=== PATIENT | female | born 1995 | race Caucasian/White ===

== ENCOUNTER 2016-08-01 14:07 | Emergency (ER) | payer BC ==
[~2016-08-01] VITALS: Ht 162.6 cm; Wt 90.7 kg
[2016-08-01 14:16] VITALS: TEMP 37; Ht 162.6 cm; Wt 90.7 kg
[2016-08-01] MEDS ORDERED: BCPILLS PO (15:08)
[2016-08-01] MEDS ORDERED: SODIUM CHLORIDE 0.9% 1000ML 1,000 ML IV ONE (15:45)
--- NOTE | 2016-08-01 16:16 | DIAGNOSTIC IMAGING REPORT ---
LEFT ELBOW 3 VIEWS HISTORY: Left elbow area soft tissue swelling COMPARISON: None. FINDINGS: There is no fracture or dislocation. Soft tissues are unremarkable. No significant elbow effusion. No radiopaque foreign bodies. IMPRESSION: No significant abnormality within the left elbow by conventional radiographic technique. Electronically signed by: Jamar Mojica M.D. 08/01/2016 4:15 PM Dictated Date/Time: 08/01/2016 4:14 PM
[2016-08-01 16:50] LABS: BASO % 0.2 %; BASO ABS # 0.02 K/uL (0-0.2); COMPLETE YES; EOS % 2.2 %; HEMATOCRIT 42.4 % (37-47); IG% 0.3 %; LYMPH ABS # 1.96 K/uL (1.2-3.4); MEAN CELL VOLUME 81.9 fL (80-100); MEAN CORPUSCULAR HGB CONC 35.4 g/dl (32-36); MEAN PLATELET VOLUME 10.1 fL (7.4-10.4); MONO % 6.2 %; NEUT % 73.1 %; PLATELET COUNT 262 K/uL (130-400); RED BLOOD COUNT 5.18 M/uL (4.2-5.4); WHITE BLOOD COUNT 10.86 K/uL (4.8-10.8)
[2016-08-01 17:08] LABS: CALCIUM 10.1 mg/dl (8.5-10.1); CREATININE 0.83 mg/dl (0.60-1.20); POTASSIUM 3.6 mmol/L (3.5-5.1)
[2016-08-01 17:11] LABS: ALB/GLOB RATIO 0.9 (0.9-2)
[2016-08-01 17:32] LABS: ANTI-STREP O SCR: 5YRS OR > POS IU/ml (<200 IU)
[2016-08-01 17:47] LABS: ANTI-STREP O TITRE: 5YR OR > 200 IU/ml (<200 IU)
--- NOTE | 2016-08-01 17:50 | DIAGNOSTIC IMAGING REPORT ---
BILATERAL LOWER EXTREMITY VENOUS DOPPLER CLINICAL HISTORY: Tachycardia. Calf pain b/l. On control COMPARISON STUDY: No previous studies for comparison. TECHNIQUE: Sonography of the deep venous system of the bilateral lower extremities was performed. Compression and augmentation were evaluated. FINDINGS: The bilateral common femoral, superficial femoral and popliteal veins were compressible. Augmentation was normal. Flow was shown within the deep calf vessels. IMPRESSION: No evidence of deep venous thrombus within the bilateral lower extremities. Electronically signed by: Marco A Lechuga M.D. 08/01/2016 5:48 PM Dictated Date/Time: 08/01/2016 5:48 PM
--- NOTE | 2016-08-01 18:00 | DIAGNOSTIC IMAGING REPORT ---
LEFT ELBOW ULTRASOUND CLINICAL HISTORY: Lump. Cellulitis. COMPARISON STUDY: No previous studies for comparison. FINDINGS: Sonography of the left elbow at site of painful lump revealed no mass, fluid collection or other sonographic abnormality. IMPRESSION: No fluid collection or mass identified within the left elbow at site of painful lump. Electronically signed by: Marco A Lechuga M.D. 08/01/2016 5:58 PM Dictated Date/Time: 08/01/2016 5:58 PM
[2016-08-01 18:01] LABS: LYME DISEASE AB IGG NEG (NEG)
[2016-08-01 18:02] LABS: LYME DISEASE AB IGM NEG (NEG)
[2016-08-01] MEDS ORDERED: CEFTRIAXONE SOD INJ 1 GM ADDVIAL IV STA (18:04)
[2016-08-01] MEDS ORDERED: OXYMETAZOLINE HCL 0.05% NA SPR 15 ML BTL ONE (18:15)
[2016-08-01] MEDS ORDERED: CEFD1CAP14 PO (18:40)
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
[2016-08-01 20:13] VITALS: BP 125/91; PULSE 107; O2SAT 100
[2016-12-25] MEDS ORDERED: ATR25 PO (10:04)
[2016-12-25] MEDS ORDERED: LXP10 PO (10:04)
[2016-12-25] MEDS ORDERED: RSP1 PO (10:04)
== END 2016-08-01 20:14 | disposition home or self-care (01) ==
LOC: C.EDB 14:10
DX: L03.114 Cellulitis of left upper limb (principal); R00.0 Tachycardia, unspecified; M79.661 Pain in right lower leg; M79.662 Pain in left lower leg; Z79.3 Long term (current) use of hormonal contraceptives

== ENCOUNTER 2016-09-26 20:05 | Emergency (ER) | payer BC ==
[~2016-09-26] VITALS: Ht 162.6 cm; Wt 90.4 kg
[~2016-09-26 20:05] MED LIST: BCPILLS PO
[2016-09-26 20:09] VITALS: TEMP 36.4; Ht 162.6 cm; Wt 90.4 kg
[2016-09-26] MEDS ORDERED: ACETAMINOPHEN 500 MG TAB PO STA (21:04)
[2016-09-26] MEDS ORDERED: SODIUM CHLORIDE 0.9% 1000ML 1,000 ML IV STA (21:04)
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
[2016-09-26 21:37] LABS: BASO % 0.1 %; BASO ABS # 0.01 K/uL (0-0.2); COMPLETE YES; EOS % 1.5 %; HEMATOCRIT 38.5 % (37-47); IG% 0.3 %; LYMPH % 34.3 %; LYMPH ABS # 2.35 K/uL (1.2-3.4); MEAN CELL VOLUME 82.3 fL (80-100); MEAN CORPUSCULAR HEMOGLOBIN 28.4 pg (25-34); MEAN CORPUSCULAR HGB CONC 34.5 g/dl (32-36); MEAN PLATELET VOLUME 10.4 fL (7.4-10.4); MONO % 6.3 %; NEUT % 57.5 %; PLATELET COUNT 252 K/uL (130-400); RED BLOOD COUNT 4.68 M/uL (4.2-5.4); WHITE BLOOD COUNT 6.86 K/uL (4.8-10.8)
[2016-09-26 22:02] LABS: ALT/SGPT 20 U/L (12-78); BLOOD UREA NITROGEN 11 mg/dl (7-18); BUN/CREATININE RATIO 11.5 (10-20); CALCIUM 9.3 mg/dl (8.5-10.1); CARBON DIOXIDE 23 mmol/L (21-32); CHLORIDE 106 mmol/L (98-107); CREATININE 0.97 mg/dl (0.60-1.20); GLUCOSE 81 mg/dl (70-99); POTASSIUM 3.1 mmol/L (3.5-5.1); SODIUM 141 mmol/L (136-145)
[2016-09-26 22:03] LABS: PREG INTERNAL NEGATIVE QC NEG CLEAR BACKGROUND; PREG INTERNAL POSITIVE QC POS CONTROL LINE
[2016-09-26 22:05] LABS: ALKALINE PHOSPHATASE 70 U/L (45-117); AST/SGOT 14 U/L (15-37)
--- NOTE | 2016-09-26 22:09 | DIAGNOSTIC IMAGING REPORT ---
CHEST ONE VIEW PORTABLE CLINICAL HISTORY: Chest pain. COMPARISON STUDY: Chest radiograph May 25, 2013. FINDINGS: Lung volumes are normal. Lungs are clear. There is no pneumothorax or pleural effusion. Cardiac size is normal. Mediastinal contours are normal. There is no evidence of pulmonary edema. IMPRESSION: No acute cardiopulmonary findings. Electronically signed by: Marco A Lechuga M.D. 09/26/2016 10:08 PM Dictated Date/Time: 09/26/2016 10:07 PM
[2016-09-26] MEDS ORDERED: POTASSIUM CHLORIDE 10 MEQ TABCR PO STA (22:11)
[2016-09-26] MEDS ORDERED: HYDR25CA PO (22:13)
[2016-09-26] MEDS ORDERED: AMPH20TA2 PO (22:13)
[2016-09-26] MEDS ORDERED: IBUP-1428 PO (22:13)
[2016-09-26] MEDS ORDERED: IBUP-1050 PO (22:13)
[2016-09-26 22:39] VITALS: BP 124/79; PULSE 86; O2SAT 100
[2016-12-25] MEDS ORDERED: LXP10 PO (10:04)
[2016-12-25] MEDS ORDERED: ATR25 PO (10:04)
[2016-12-25] MEDS ORDERED: RSP1 PO (10:04)
== END 2016-09-26 22:40 | disposition home or self-care (01) ==
LOC: C.EDB 20:06 → C.EDA 22:40
DX: R07.2 Precordial pain (principal); E87.6 Hypokalemia; R00.2 Palpitations; F90.0 Attention-deficit hyperactivity disorder, predominantly inattentive type

== ENCOUNTER 2016-10-21 03:28 | Emergency (ER) | payer BC ==
[~2016-10-21] VITALS: Ht 162.6 cm; Wt 86.4 kg
[~2016-10-21 03:28] MED LIST changes: +AMPH20TA2 PO; +HYDR25CA PO; +IBUP-1050 PO; +IBUP-1428 PO
[2016-10-21 03:37] VITALS: TEMP 36.7; Ht 162.6 cm; Wt 86.4 kg
[2016-10-21] MEDS ORDERED: KETOROLAC TROMETHAMINE 30 MG/ML VIAL IV STA (03:52)
--- NOTE | 2016-10-21 04:03 | EMERGENCY ROOM VISIT NOTE ---
History Report prepared by Brandi: Sunday Lawton Under the Supervision of: Dr. Maryellen Haley D.O. First contact with patient: 03:33 Chief Complaint: CARDIAC ASSESSMENT Stated Complaint: CHEST PAIN/SHORT OF BREATH History of Present Illness The patient is a 21 year old female who presents to the Emergency Room with complaints of persistent left-sided chest pain that started just prior to arrival. The patient noticed the pain after putting laundry in the washing machine. The pain is described as a "warm" sensation. She did not have the pain when she was carrying the laundry to the washing machine, and she has never had pain like this before. She was in the ED with chest pain last month, which was sharp in nature and accompanied by bilateral arm numbness. The patient also describes some shortness of breath. She became lightheaded and weak after the onset of her pain which caused her to drop to her knees. She denies abdominal pain. She had upper back / left shoulder pain that started 1-2 hours ago, prior to the onset of her other symptoms. She denies any recent strenuous activities. The patient recently wore a halter monitor for palpitations, which she has yet to return. The patient was up at this hour because she took her Adderall later than usual (2100), which she does not normally do. She has not been taking more than her prescribed dose. She drinks coffee and last had some at 1600 last night. She is a [employer] student and has class in the afternoon today. The patient is on control but does not smoke. She denies drug or alcohol use. She also denies increased stress lately. The patient has a paternal history of hypertension. Source of History: patient Onset: prior to arrival Position: chest Quality: other ("warm") Timing: other (persistent) Associated Symptoms: + SOB, + back pain (back / left shoulder), + weakness, No abdominal pain Review of Systems See HPI for pertinent positives & negatives. A total of 10 systems reviewed and were otherwise negative. Past Medical & Surgical Medical Problems: (1) ADHD (attention deficit hyperactivity disorder) Family History Hypertension Social History Smoking Status: Never Smoker Alcohol Use: none Drug Use: none Marital Status: single Housing Status: lives with roommate Occupation Status: [employer] student Current/Historical Medications Scheduled Amphetamine-Dextroamphetamine 20MG (Adderall 20MG), 20 MG PO BID Control Pills ( Control Pills), 1 TAB PO DAILY Scheduled PRN Hydroxyzine Pamoate (Vistaril), 25 MG PO BID PRN for prn Allergies Coded Allergies: Amoxicillin (Unverified Allergy, Unknown, numbness/hives, 10/21/16) Physical Exam Vital Signs Date Time Temp Pulse Resp B/P Pulse Ox O2 Delivery O2 Flow Rate FiO2 10/21/16 05:39 91 16 128/81 100 10/21/16 03:37 36.7 97 18 134/92 100 Room Air 10/21/16 03:37 100 Room Air 10/21/16 03:35 102 Physical Exam HEENT: Head - normocephalic and atraumatic Pupils are equal, round, and reactive to light. Extraocular eye muscles are intact, and sclera are anicteric. Nose - moist nasal mucosa without discharge. Mouth - moist buccal mucosa. Oropharynx is nonerythematous and there is no tonsillar exudate or edema noted. Neck: Supple; no JVD, nuchal rigidity, cervical lymphadenopathy. Heart: Regular rate and rhythm. There is a normal S1 and S2 with no murmurs, clicks, or gallops appreciated. Lungs: Clear to auscultation bilaterally with no wheezes, rales, or rhonchi. Back: Muscle spasm to the medial aspect of the left scapula. Tender with palpation. Abdomen: Soft, completely nontender, nondistended, with good bowel sounds. There are no palpable pulsatile masses or hepatosplenomegaly. There is no guarding, rigidity, or rebound noted. Extremities: No evidence of cyanosis, clubbing, or edema. There are easily palpable peripheral pulses. Skin: warm and dry with good turgor and no rashes. Medical Decision & Procedures ER Provider Diagnostic Interpretation: X-ray results as stated below per interpretation by me. CHEST ONE VIEW PORTABLE: No cardiomegaly, no pulmonary infiltrates. Unremarkable portable chest X-ray. Laboratory Results 10/21/16 04:19 Red Blood Count 4.55, Mean Corpuscular Volume 79.8, Mean Corpuscular Hemoglobin 28.4, Mean Corpuscular Hemoglobin Concent 35.5, Mean Platelet Volume 10.3, Neutrophils (%) (Auto) 62.0, Lymphocytes (%) (Auto) 29.4, Monocytes (%) (Auto) 6.3, Eosinophils (%) (Auto) 1.9, Basophils (%) (Auto) 0.2, Neutrophils # (Auto) 3.96, Lymphocytes # (Auto) 1.87, Monocytes # (Auto) 0.40, Eosinophils # (Auto) 0.12, Basophils # (Auto) 0.01 10/21/16 04:19 Test 10/21/16 04:19 White Blood Count 6.37 K/uL (4.8-10.8) Red Blood Count 4.55 M/uL (4.2-5.4) Hemoglobin 12.9 g/dL (12.0-16.0) Hematocrit 36.3 % (37-47) Mean Corpuscular Volume 79.8 fL (80-100) Mean Corpuscular Hemoglobin 28.4 pg (25-34) Mean Corpuscular Hemoglobin Concent 35.5 g/dl (32-36) Platelet Count 233 K/uL (130-400) Mean Platelet Volume 10.3 fL (7.4-10.4) Neutrophils (%) (Auto) 62.0 % Lymphocytes (%) (Auto) 29.4 % Monocytes (%) (Auto) 6.3 % Eosinophils (%) (Auto) 1.9 % Basophils (%) (Auto) 0.2 % Neutrophils # (Auto) 3.96 K/uL (1.4-6.5) Lymphocytes # (Auto) 1.87 K/uL (1.2-3.4) Monocytes # (Auto) 0.40 K/uL (0.11-0.59) Eosinophils # (Auto) 0.12 K/uL (0-0.5) Basophils # (Auto) 0.01 K/uL (0-0.2) RDW Standard Deviation 34.9 fL (36.4-46.3) RDW Coefficient of Variation 12.0 % (11.5-14.5) Immature Granulocyte % (Auto) 0.2 % Immature Granulocyte # (Auto) 0.01 K/uL (0.00-0.02) D-Dimer 230 ug/L FEU (0-500) Anion Gap 10.0 mmol/L (3-11) Est Creatinine Clear Calc Drug Dose 119.4 ml/min Estimated GFR () 124.2 Estimated GFR (Non- 107.2 BUN/Creatinine Ratio 11.7 (10-20) Calcium Level 9.0 mg/dl (8.5-10.1) Total Bilirubin 0.4 mg/dl (0.2-1) Direct Bilirubin 0.1 mg/dl (0-0.2) Aspartate Amino Transf (AST/SGOT) 9 U/L (15-37) Alanine Aminotransferase (ALT/SGPT) 25 U/L (12-78) Alkaline Phosphatase 62 U/L (45-117) Total Creatine Kinase 91 U/L (26-192) Creatine Kinase MB < 0.5 ng/ml (0.5-3.6) Creatine Kinase MB Ratio (0-3.0) Troponin I < 0.015 ng/ml (0-0.045) Total Protein 7.3 gm/dl (6.4-8.2) Albumin 3.5 gm/dl (3.4-5.0) Thyroid Stimulating Hormone (TSH) 1.470 uIu/ml (0.300-4.500) Laboratory results per my review. Medications Administered Medications (Trade) Dose Ordered Sig/Anita Route Start Time Stop Time Status Last Admin Dose Admin Ketorolac Tromethamine (Toradol Inj) 30 mg NOW STAT IV 10/21/16 03:52 10/21/16 03:56 DC 10/21/16 03:52 30 MG Procedure Medications administered include Toradol IV. ECG Indication: chest pain Rate (beats per minute): 94 Rhythm: normal sinus Findings: no acute ischemic change, no ectopy ED Course 0346: Past medical records reviewed. The patient was evaluated in room B10. A complete history and physical exam was performed. A twelve-lead EKG was obtained as described above. An IV lock was initiated and labs were drawn as above. 0352: Toradol 30 mg IV. A chest x-ray was performed and was unremarkable. 0518: The patient's heart rate was 88 when I walked in the room, and went up to 114 as I was talking to her. The patient appears to have a clear component of anxiety. I reviewed the results of the x-ray and laboratory studies with the patient. She did describes significant relief of her chest discomfort, left scapular pain , and headache. Medical Decision The patient is a 21 year old female who presents to the ED with chest pain. Differential diagnosis includes anxiety, PE, GERD, pleurisy, cardiac dysrhythmia , costochondritis, cardiac ischemia. Laboratory interpretation: no leukocytosis, stable H&H, potassium slightly low at 3.4, normal renal function and glucose, normal TSH and LFTs, negative cardiac enzyme, normal D-dimer. This is a 21 over female patient who presents with an episode of a warm sensation to the left side of her chest and then generalized weakness in her legs. Patient also describes a headache and discomfort in her left scapula. The patient was seen here in the emergency department one month ago with an episode of left-sided chest pain which she describes as being much different than today's episode. She wore a Holter monitor for 48 hours last weekend. She has yet to turn that monitor and event log in 2 the primary care office for interpretation. It does not appear that the patient has had an acute ischemic cardiac event. We discussed the possibility of a cardiac dysrhythmia as the cause of the patient's symptoms today. I encouraged her to turn the Holter monitor in with the event log they could interpret it. She is feeling much better at the time of discharge. The patient does live by herself. She describes having no friends in her dorm that she can rely upon for assistance. I recommended that she contact her family so that they could be with her over the next couple of days until she has further follow-up with critical access hospital services. I spent some time talking to the patient about the dosing of her Adderall. She should avoid taking this at nighttime. In fact, she should not take after 2 PM in the afternoon. She was told to return here to the ER if symptoms worsened. Impression Primary Impression: Left sided chest pain Additional Impression: Leg weakness Scribe Attestation The scribe's documentation has been prepared under my direction and personally reviewed by me in its entirety. I confirm that the note above accurately reflects all work, treatment, procedures, and medical decision making performed by me. Departure Information Dispostion Home / Self-Care Referrals [facility] (PCP) Forms IMPORTANT VISIT INFORMATION Patient Instructions My [facility] Additional Instructions Rest. do not take adderal after 2:00pm. Return the holter monitor for interpretation I would like your family or friend to be with you over the next couple of days Return to the ER if symptoms worsen. Problem Qualifiers
[2016-10-21 04:28] LABS: BASO % 0.2 %; BASO ABS # 0.01 K/uL (0-0.2); COMPLETE YES; EOS % 1.9 %; HEMATOCRIT 36.3 % (37-47); IG% 0.2 %; LYMPH % 29.4 %; LYMPH ABS # 1.87 K/uL (1.2-3.4); MEAN CELL VOLUME 79.8 fL (80-100); MEAN CORPUSCULAR HEMOGLOBIN 28.4 pg (25-34); MEAN CORPUSCULAR HGB CONC 35.5 g/dl (32-36); MEAN PLATELET VOLUME 10.3 fL (7.4-10.4); MONO % 6.3 %; PLATELET COUNT 233 K/uL (130-400); RED BLOOD COUNT 4.55 M/uL (4.2-5.4); WHITE BLOOD COUNT 6.37 K/uL (4.8-10.8)
[2016-10-21 04:48] LABS: ALT/SGPT 25 U/L (12-78); AST/SGOT 9 U/L (15-37); BLOOD UREA NITROGEN 9 mg/dl (7-18); BUN/CREATININE RATIO 11.7 (10-20); CARBON DIOXIDE 23 mmol/L (21-32); CHLORIDE 106 mmol/L (98-107); CREATININE 0.78 mg/dl (0.60-1.20); GLUCOSE 94 mg/dl (70-99); POTASSIUM 3.4 mmol/L (3.5-5.1); SODIUM 139 mmol/L (136-145)
[2016-10-21 04:58] LABS: ALKALINE PHOSPHATASE 62 U/L (45-117)
[2016-10-21 05:39] VITALS: BP 128/81; PULSE 91; O2SAT 100
--- NOTE | 2016-10-21 07:32 | DIAGNOSTIC IMAGING REPORT ---
SINGLE VIEW CHEST CLINICAL HISTORY: Atypical chest pain. FINDINGS: An AP, portable, upright chest radiograph is compared to study dated 09/26/2016. The examination is degraded by portable technique and patient rotation. The cardiomediastinal silhouette is unremarkable. There are low lung volumes. The lungs and pleural spaces are clear. No pneumothorax is seen. The bony thorax is grossly intact. IMPRESSION: No active disease in the chest. Electronically signed by: Ace Brunner M.D. 10/21/2016 7:30 AM Dictated Date/Time: 10/21/2016 7:29 AM
[2016-12-25] MEDS ORDERED: LXP10 PO (10:04)
[2016-12-25] MEDS ORDERED: ATR25 PO (10:04)
[2016-12-25] MEDS ORDERED: RSP1 PO (10:04)
== END 2016-10-21 05:40 | disposition home or self-care (01) ==
LOC: C.EDB 03:28 → EDBD 03:28 → C.EDB 05:40
DX: R07.9 Chest pain, unspecified (principal); F90.0 Attention-deficit hyperactivity disorder, predominantly inattentive type; R53.1 Weakness

== ENCOUNTER 2016-11-27 23:05 | Emergency (ER) | payer BC ==
[~2016-11-27] VITALS: Ht 162.6 cm; Wt 84.5 kg
[~2016-11-27 23:05] MED LIST changes: -IBUP-1050 PO; -IBUP-1428 PO
[2016-11-27 23:07] VITALS: Ht 162.6 cm; Wt 84.5 kg
[2016-11-27] MEDS ORDERED: MoRPHine SULFATE 4 MG/ML 1 ML CARP\\VIAL IV STA (23:24)
[2016-11-27] MEDS ORDERED: SODIUM CHLORIDE 0.9% 1000ML 1,000 ML IV STA (23:24)
[2016-11-27] MEDS ORDERED: ONDANSETRON INJ 2 MG/ML 2 ML VIAL IV STA (23:24)
[2016-11-28 00:07] LABS: BASO % 0.3 %; BASO ABS # 0.02 K/uL (0-0.2); COMPLETE YES; HEMATOCRIT 45.1 % (37-47); IG% 0.4 %; LYMPH % 10.2 %; LYMPH ABS # 0.71 K/uL (1.2-3.4); MEAN CELL VOLUME 81.7 fL (80-100); MEAN CORPUSCULAR HEMOGLOBIN 27.9 pg (25-34); MEAN CORPUSCULAR HGB CONC 34.1 g/dl (32-36); MEAN PLATELET VOLUME 10.2 fL (7.4-10.4); MONO % 0.9 %; NEUT % 88.2 %; PLATELET COUNT 306 K/uL (130-400); RED BLOOD COUNT 5.52 M/uL (4.2-5.4); WHITE BLOOD COUNT 6.97 K/uL (4.8-10.8)
[2016-11-28 00:13] LABS: PREG INTERNAL NEGATIVE QC NEG CLEAR BACKGROUND; PREG INTERNAL POSITIVE QC POS CONTROL LINE; URINE APPEARANCE CLOUDY (CLEAR); URINE BILIRUBIN NEG (NEG); URINE COLOR YELLOW; URINE EPITHELIAL CELL AUTO >30 /lpf (0-5); URINE NITRITE NEG (NEG); URINE SPECIFIC GRAVITY 1.027 (1.000-1.030); UROBILINOGEN NEG (NEG); ZZUR CULT IF INDIC CLEAN CATCH YES
[2016-11-28 00:23] LABS: MANUAL MICROSCOPIC REQUIRED? NO; REVIEW REQ? YES
[2016-11-28 00:30] LABS: BUN/CREATININE RATIO 14.8 (10-20); CALCIUM 9.9 mg/dl (8.5-10.1); CREATININE 0.93 mg/dl (0.60-1.20); POTASSIUM 3.9 mmol/L (3.5-5.1)
[2016-11-28 00:32] LABS: ALB/GLOB RATIO 0.8 (0.9-2)
[2016-11-28 00:41] LABS: URINE MUCUS PRESENT (NONE PRSENT)
[2016-11-28] MEDS ORDERED: MoRPHine SULFATE 4 MG/ML 1 ML CARP\\VIAL IV STA (01:10)
[2016-11-28] MEDS ORDERED: SODIUM CHLORIDE 0.9% 1000ML 1,000 ML IV STA (01:22)
[2016-11-28] MEDS ORDERED: LORA-741 PO (01:48)
[2016-11-28] MEDS ORDERED: CLIN300C2 PO (01:50)
[2016-11-28] MEDS ORDERED: OPTIRAY 320 IV PRN (02:00)
--- NOTE | 2016-11-28 03:22 | EMERGENCY ROOM VISIT NOTE ---
History First contact with patient: 23:13 Chief Complaint: ABDOMINAL PAIN Stated Complaint: RUQ PAIN, UNDER RIB CAGE Nursing Triage Summary: Pt diagnosed with strept throat 3 days and has taking Clindamycin. Pt started to develop right upper abdominal pain with nausea, no vomiting. History of Present Illness The patient is a 21 year old female who presents to the Emergency Room with complaints of right upper quadrant abdominal pain which began suddenly approximately 5 hours ago. The patient states that she has had a sharp pain in her right upper abdomen, under the rib cage. The pain radiates into the back. This began 5 hours ago. She states it was very sharp at first but has somewhat improved at this time. She has a constant dull pain with intermittent sharp pains. She rates the discomfort a 9/10. She is nauseous but denies vomiting. She denies any changes in bowel movements, urinary symptoms, vaginal discharge, chest pain, shortness of breath or fevers. The patient states that she is currently being treated with clindamycin for strep pharyngitis. Review of Systems A complete 10 point review of systems was reviewed with the patient with pertinent positives and negatives as per history of present illness. All else were negative. Past Medical/Surgical History Medical Problems: (1) ADHD (attention deficit hyperactivity disorder) Family History Hypertension Social History Smoking Status: Never Smoker Alcohol Use: none Drug Use: none Marital Status: single Housing Status: lives with roommate Occupation Status: [employer] student Current/Historical Medications Scheduled Amphetamine-Dextroamphetamine 20MG (Adderall 20MG), 20 MG PO TID Control Pills ( Control Pills), 1 TAB PO DAILY Clindamycin Hcl (Cleocin), Unknown Dose PO TID Scheduled PRN Lorazepam (Ativan), 0.5 MG PO BID PRN for Anxiety Allergies Coded Allergies: Amoxicillin (Verified Allergy, Intermediate, FACIAL NUMBNESS, 11/28/16) Clavulanic Acid (Verified Allergy, Intermediate, FACIAL NUMBNESS, 11/28/16) Physical Exam Vital Signs Date Time Temp Pulse Resp B/P Pulse Ox O2 Delivery O2 Flow Rate FiO2 11/28/16 03:26 36.7 127 18 134/85 97 Room Air 11/28/16 02:29 102 18 132/88 96 Room Air 11/28/16 01:17 110 20 118/72 96 Room Air 11/27/16 23:07 36.5 137 20 109/83 96 Room Air Physical Exam VITALS: Vitals are noted on the nurse's note and reviewed by myself. Vital signs stable. GENERAL: This is a 21-year-old female, in no acute distress, nondiaphoretic, well-developed well-nourished. SKIN: The skin was without rashes. EARS: External auditory canals clear, tympanic membranes pearly osorio without erythema or effusion bilaterally. EYES: Pupils equal round and reactive to light and accommodation. Conjunctivae without injection, sclerae without icterus. MOUTH: Mucous membranes moist. Tonsils 3+ bilaterally with minimal exudate present. NECK: Supple without nuchal rigidity. No lymphadenopathy. HEART: Regular rate and rhythm without murmurs gallops or rubs. LUNGS: Clear to auscultation bilaterally without wheezes, rales or rhonchi. ABDOMEN: Positive bowel sounds x 4. Soft, moderate tenderness to palpation over the right upper quadrant. Negative Waldrop sign. No guarding or rebound tenderness. NEURO: Patient was alert and oriented to person place and time. Medical Decision & Procedures ER Provider Diagnostic Interpretation: US RUQ: The partially visualized pancreas is unremarkable. The liver is normal in size with increased echogenicity suggesting hepatic steatosis. There is a 20 mm iso-to hyperechoic lesion within the left hepatic lobe. Findings are incompletely characterized and may represent a hemangioma. Consider short interval follow-up sonogram versus contrast-enhanced CT or MRI. The common bile duct is within normal limits measuring 4-5 mm. Tiny polyp within the gallbladder. No gallstone, sludge, gallbladder wall thickening or pericholecystic fluid. Prominent right renal pelvis without evidence of hydronephrosis. Scarring noted within the superior pole. No renal calculi or masses. CT ABDOMEN & PELVIS: Visualized lower thorax is unremarkable. Subcentimeter low density lesion within the right hepatic lobe which is too small to characterize. The gallbladder, spleen, pancreas and adrenal glands are unremarkable. The kidney, ureters and urinary bladder are unremarkable. The uterus and adnexa are unremarkable. The appendix is unremarkable. The stomach, small bowel, and colon are unremarkable. Small amount of free fluid in the pelvis, which is nonspecific. No acute osseous abnormality. Radiologist: Calvin Grissom MD Laboratory Results 11/27/16 23:48 Red Blood Count 5.52, Mean Corpuscular Volume 81.7, Mean Corpuscular Hemoglobin 27.9, Mean Corpuscular Hemoglobin Concent 34.1, Mean Platelet Volume 10.2, Neutrophils (%) (Auto) 88.2, Lymphocytes (%) (Auto) 10.2, Monocytes (%) (Auto) 0.9, Eosinophils (%) (Auto) 0.0, Basophils (%) (Auto) 0.3, Neutrophils # (Auto) 6.15, Lymphocytes # (Auto) 0.71, Monocytes # (Auto) 0.06, Eosinophils # (Auto) 0.00, Basophils # (Auto) 0.02 11/27/16 23:48 Test 11/27/16 23:48 11/27/16 23:57 White Blood Count 6.97 K/uL (4.8-10.8) Red Blood Count 5.52 M/uL (4.2-5.4) Hemoglobin 15.4 g/dL (12.0-16.0) Hematocrit 45.1 % (37-47) Mean Corpuscular Volume 81.7 fL (80-100) Mean Corpuscular Hemoglobin 27.9 pg (25-34) Mean Corpuscular Hemoglobin Concent 34.1 g/dl (32-36) Platelet Count 306 K/uL (130-400) Mean Platelet Volume 10.2 fL (7.4-10.4) Neutrophils (%) (Auto) 88.2 % Lymphocytes (%) (Auto) 10.2 % Monocytes (%) (Auto) 0.9 % Eosinophils (%) (Auto) 0.0 % Basophils (%) (Auto) 0.3 % Neutrophils # (Auto) 6.15 K/uL (1.4-6.5) Lymphocytes # (Auto) 0.71 K/uL (1.2-3.4) Monocytes # (Auto) 0.06 K/uL (0.11-0.59) Eosinophils # (Auto) 0.00 K/uL (0-0.5) Basophils # (Auto) 0.02 K/uL (0-0.2) RDW Standard Deviation 35.8 fL (36.4-46.3) RDW Coefficient of Variation 11.9 % (11.5-14.5) Immature Granulocyte % (Auto) 0.4 % Immature Granulocyte # (Auto) 0.03 K/uL (0.00-0.02) Anion Gap 10.0 mmol/L (3-11) Est Creatinine Clear Calc Drug Dose 99.0 ml/min Estimated GFR () 100.4 Estimated GFR (Non- 86.6 BUN/Creatinine Ratio 14.8 (10-20) Calcium Level 9.9 mg/dl (8.5-10.1) Total Bilirubin 0.3 mg/dl (0.2-1) Aspartate Amino Transf (AST/SGOT) 10 U/L (15-37) Alanine Aminotransferase (ALT/SGPT) 21 U/L (12-78) Alkaline Phosphatase 104 U/L (45-117) Total Protein 8.4 gm/dl (6.4-8.2) Albumin 3.7 gm/dl (3.4-5.0) Globulin 4.7 gm/dl (2.5-4.0) Albumin/Globulin Ratio 0.8 (0.9-2) Lipase 86 U/L (73-393) Urine Color YELLOW Urine Appearance CLOUDY (CLEAR) Urine pH 6.0 (4.5-7.5) Urine Specific [place] 1.027 (1.000-1.030) Urine Protein NEG (NEG) Urine Glucose (UA) 1+ (NEG) Urine Ketones TRACE (NEG) Urine Occult Blood NEG (NEG) Urine Nitrite NEG (NEG) Urine Bilirubin NEG (NEG) Urine Urobilinogen NEG (NEG) Urine Leukocyte Esterase NEG (NEG) Urine WBC (Auto) 1-5 /hpf (0-5) Urine RBC (Auto) 0-4 /hpf (0-4) Urine Hyaline Casts (Auto) 0 /lpf (0-5) Urine Epithelial Cells (Auto) >30 /lpf (0-5) Urine Bacteria (Auto) 1+ (NEG) Urine Renal Epithelial Cells /lpf (0-5) Urine Mucus PRESENT (NONE PRSENT) Urine Test NEG (NEG) Medications Administered Medications (Trade) Dose Ordered Sig/Anita Route Start Time Stop Time Status Last Admin Dose Admin Sodium Chloride (Nss 1000ml) 1,000 ml @ 999 mls/hr Q1H1M STAT IV 11/27/16 23:24 11/28/16 00:24 DC 11/28/16 00:06 999 MLS/HR Ondansetron HCl (Zofran Inj) 4 mg NOW STAT IV 11/27/16 23:24 11/27/16 23:25 DC 11/28/16 00:06 4 MG Morphine Sulfate (MoRPHine SULFATE INJ) 4 mg NOW STAT IV 11/27/16 23:24 11/27/16 23:25 DC 11/28/16 00:07 4 MG Morphine Sulfate 4 mg 4 mg NOW STAT IV 11/28/16 01:10 11/28/16 01:11 DC 11/28/16 01:16 4 MG Sodium Chloride (Nss 1000ml) 1,000 ml @ 999 mls/hr Q1H1M STAT IV 11/28/16 01:22 11/28/16 02:22 DC 11/28/16 01:59 999 MLS/HR ED Course The patient was evaluated as above. Labs were drawn and IV access was obtained. Patient was medicated with 1 L normal saline solution, 4 mg morphine IV and 4 mg Zofran IV. Imaging studies were performed and read by merrick as above. Patient was reevaluated and continued pain. She was given 4 mg morphine IV with good relief. Findings were discussed with the patient. Discharge instructions were reviewed with the patient. The patient verbalized understanding of my assessment and treatment plan and was discharged home in good condition. Medical Decision Differential diagnosis includes cholecystitis, gastroenteritis, colitis, medication side effects, kidney stone, bowel obstruction, pneumonia, musculoskeletal pain, among others. The patient is a 21-year-old female who presents today complaining of right upper quadrant pain. Labs revealed no leukocytosis, anemia or concerning electrolyte abnormalities. Urinalysis was not suggestive of infection. Urine was negative. Right upper quadrant ultrasound showed no acute findings, but did show a finding within the liver and suggested a CT scan for further clarification. CT of the abdomen and pelvis was performed and showed no acute findings. Patient has right upper quadrant tenderness on examination. I and was suspicious for lung pathology as she is not short of breath or coughing. Patient was tachycardiac on arrival to the emergency department. She does admit she was very anxious in general, especially regarding the symptoms. I feel this is likely the cause of her tachycardia. Heart rate did improve throughout her stay after fluids. Patient was able to tolerate by mouth fluids with no difficulty. She will follow-up with [facility] within 2 days. The patient's case was reviewed with Dr. Dotson, ED attending physician, who agreed with my assessment and treatment plan. Based on the patient's presentation and work up, I feel the patient is stable for outpatient treatment. The patient was educated to return to the emergency department for any worsening of their current condition or new/concerning symptoms. She will follow up with [facility] this week. Impression Primary Impression: Right upper quadrant abdominal pain Departure Information Dispostion Home / Self-Care Condition GOOD Referrals No Doctor, Assigned (PCP) Patient Instructions My [facility] Additional Instructions You have been treated in the Emergency Department your Abdominal Pain. Laboratory results and imaging studies have ruled out any emergent causes for your abdominal pain which would warrant admission or surgery. For pain control, you can use the following [id number] medicines (if >12 yo): - Regular strength (325mg/tab) Tylenol (acetaminophen) 2 tabs every 4-6 hours as needed. Do not exceed 12 tablets in a 24 hour period. Avoid taking more than 4 grams (4000 mg) of Tylenol per day. This includes any other sources of acetaminophen you may take on a regular basis. - Regular strength (200 mg/tab) Advil (ibuprofen) 1-2 tabs every 4-6 hours as needed. Do not exceed a dose of 3200 mg per day. [place] diet for the next 24-48 hours. Drink plenty of water and stay well hydrated. Follow-up with [facility] services or primary care provider within 48 hours. Return to the emergency department if your symptoms persist despite treatment plan outlined above or if the following symptoms occur: fevers, chills, worsening nausea/vomiting, blood in your stool or urine.
[2016-11-28 03:26] VITALS: BP 134/85; PULSE 127; TEMP 36.7; O2SAT 97
--- NOTE | 2016-11-28 07:11 | DIAGNOSTIC IMAGING REPORT ---
ABDOMINAL ULTRASOUND, RIGHT UPPER QUADRANT HISTORY: RUQ pain, nausea. COMPARISON: None. FINDINGS: Pancreas: The pancreatic head and tail are obscured by overlying bowel gas. The remaining portions of the pancreas are within normal limits. Liver: The liver is echogenic consistent with fatty change. There is a 2 cm iso to hyperechoic lesion within the liver adjacent to the IVC. Gallbladder: No gallbladder wall thickening. No gallstones. There appears to be a tiny gallbladder polyp. CBD: 4.4 mm. Right kidney: No hydronephrosis. IMPRESSION: 1. A tiny gallbladder polyp. No gallbladder wall thickening. No gallstones. 2. Hepatic steatosis. 3. A 2 cm iso to hyperechoic lesion within the liver adjacent to the IVC. This is incompletely characterized by ultrasound. Electronically signed by: Jamar Mojica M.D. 11/28/2016 7:09 AM Dictated Date/Time: 11/28/2016 7:07 AM
--- NOTE | 2016-11-28 07:20 | DIAGNOSTIC IMAGING REPORT ---
ABDOMEN AND PELVIS CT WITH IV CONTRAST CT DOSE: 503.72 mGy.cm HISTORY: liver abnormality on us, RUQ pain, nausea TECHNIQUE: Multiaxial CT images of the abdomen and pelvis were performed following the use of intravenous contrast. COMPARISON STUDY: Abdominal ultrasound 11/28/2016. FINDINGS: Mild dependent changes seen within the lung bases. Bilateral L5 spondylolysis. There is an 8 mm hypodense lesion within the right hepatic lobe on image 95. This is too small to characterize. There is 1.5 cm isodense slightly hypodense lesion within the caudate lobe adjacent to the IVC. This is seen on image 77. This may account for the abnormality on the ultrasound. This is incompletely characterized on this single phase study. The adrenal glands, pancreas, gallbladder, kidneys, and spleen are unremarkable. The bladder, uterus, and bilateral recess within normal limits. Trace pelvic free fluid which is likely physiologic. No bowel wall thickening or obstruction. Normal appendix. No retroperitoneal lymphadenopathy. IMPRESSION: 1. There are 2 lesions within the liver with the largest in the caudate lobe adjacent the IVC measuring 1.5 cm. These are incompletely characterized on this single phase study. However, given the patient's age, these favor benign lesions such as hemangiomas. Follow-up nonemergent liver MRI can be used for confirmation if clinically warranted. 2. No bowel wall thickening or obstruction. 3. Normal appendix. 4. Trace pelvic free fluid. This is likely physiologic. Electronically signed by: Jamar Mojica M.D. 11/28/2016 7:18 AM Dictated Date/Time: 11/28/2016 7:13 AM
[2016-12-25] MEDS ORDERED: LXP10 PO (10:04)
[2016-12-25] MEDS ORDERED: ATR25 PO (10:04)
[2016-12-25] MEDS ORDERED: RSP1 PO (10:04)
== END 2016-11-28 03:30 | disposition home or self-care (01) ==
LOC: C.EDB 23:06 → C.EDA 11-28 03:30
DX: R10.11 Right upper quadrant pain (principal); F90.9 Attention-deficit hyperactivity disorder, unspecified type; F41.9 Anxiety disorder, unspecified; Z82.49 Family history of ischemic heart disease and other diseases of the circulatory system; Z79.3 Long term (current) use of hormonal contraceptives; Z79.899 Other long term (current) drug therapy

== ENCOUNTER 2016-12-12 06:45 | Emergency (ER) | payer BC ==
[~2016-12-12] VITALS: Ht 162.6 cm; Wt 82.6 kg
[~2016-12-12 06:45] MED LIST changes: +CLIN300C2 PO; -HYDR25CA PO; +LORA-741 PO
[2016-12-12 06:48] VITALS: TEMP 36.6; Ht 162.6 cm; Wt 82.6 kg
[2016-12-12] MEDS ORDERED: SODIUM CHLORIDE 0.9% 1000ML 1,000 ML IV STA (07:50)
[2016-12-12 08:46] LABS: BASO % 0.3 %; BASO ABS # 0.02 K/uL (0-0.2); COMPLETE YES; EOS % 1.5 %; HEMATOCRIT 38.7 % (37-47); IG% 0.1 %; LYMPH % 28.8 %; LYMPH ABS # 2.07 K/uL (1.2-3.4); MEAN CELL VOLUME 81.5 fL (80-100); MEAN CORPUSCULAR HGB CONC 34.4 g/dl (32-36); MEAN PLATELET VOLUME 10.4 fL (7.4-10.4); MONO % 9.2 %; NEUT % 60.1 %; PLATELET COUNT 257 K/uL (130-400); RED BLOOD COUNT 4.75 M/uL (4.2-5.4); WHITE BLOOD COUNT 7.19 K/uL (4.8-10.8)
[2016-12-12 09:03] LABS: BUN/CREATININE RATIO 13.7 (10-20); CREATININE 0.86 mg/dl (0.60-1.20); POTASSIUM 3.8 mmol/L (3.5-5.1)
[2016-12-12 09:06] LABS: CALCIUM 9.5 mg/dl (8.5-10.1)
[2016-12-12 09:14] LABS: THYROID STIMULATING HORMONE 1.8 uIu/ml (0.300-4.500)
[2016-12-12 10:25] LABS: URINE APPEARANCE CLOUDY (CLEAR); URINE BILIRUBIN NEG (NEG); URINE COLOR YELLOW; URINE EPITHELIAL CELL AUTO >30 /lpf (0-5); URINE NITRITE NEG (NEG); URINE SPECIFIC GRAVITY 1.013 (1.000-1.030); UROBILINOGEN NEG (NEG)
[2016-12-12 10:26] LABS: MANUAL MICROSCOPIC REQUIRED? NO; REVIEW REQ? NO
[2016-12-12 10:50] LABS: BENZODIAZEPINE, URINE NEG (NEG); COCAINE,URINE NEG (NEG); PHENCYCLIDINE, URINE NEG (NEG)
--- NOTE | 2016-12-12 14:32 | EMERGENCY ROOM VISIT NOTE ---
History First contact with patient: 07:04 Chief Complaint: EYE ASSESSMENT Stated Complaint: PARASITES IN EYES History of Present Illness The patient is a 21 year old female who presents to the Emergency Room with complaints of itching, irritated eyes bilaterally that started yesterday. She also states she is concerned about parasites in her eyes and nose. 2 days ago the patient was diagnosed by her primary doctor with scabies, she received treatment for this and states this is getting better. Yesterday she noted scalp itching and again saw her PCP, who noted a mild case of lice and she was again treated for this. Since yesterday patient has been concerned about parasites in her body and slugs in her dorm room. She states she is planning to change rooms, and also notes that she has a place to stay temporarily. Review of Systems GENERAL: Denies fevers, chills, malaise, fatigue, unintentional weight changes. HEENT: Denies dizziness, visual problems, hearing loss, tinnitus. Denies difficulty swallowing or oral lesions. PULMONARY: Denies cough, shortness of breath, sputum production or hemoptysis. CARDIOVASCULAR: Denies chest pain, palpitations, dyspnea on exertion, orthopnea or peripheral edema. GASTROINTESTINAL: Denies diarrhea, constipation, nausea, vomiting, or abdominal pain. GENITOURINARY: Denies dysuria, frequency, urgency or nocturia. NEUROLOGIC: Denies history of epilepsy, CVA, TIA or chronic headaches. MUSCULOSKELETAL: Denies history of joint tenderness/swelling. SKIN: Recently treated for scabies and lice. Scabbed lesions on arms and legs. PSYCHIATRIC: Denies history of depression or mental illness. + History of ADHD, anxiety ENDOCRINE: Denies history of diabetes, thyroid disorders, abnormal hair growth. Past Medical/Surgical History Medical Problems: (1) ADHD (attention deficit hyperactivity disorder) Family History Hypertension Social History Smoking Status: Light Tobacco Smoker Alcohol Use: none Drug Use: none Marital Status: single Housing Status: lives with roommate Occupation Status: [employer] student Current/Historical Medications Scheduled Amphetamine-Dextroamphetamine 20MG (Adderall 20MG), 20 MG PO TID Control Pills ( Control Pills), 1 TAB PO DAILY Ciprofloxacin Ophth Soln (Ciprofloxacin Ophth Soln), 2 DROPS OPB QID Scheduled PRN Lorazepam (Ativan), 0.5 MG PO BID PRN for Anxiety Allergies Coded Allergies: Amoxicillin (Verified Allergy, Intermediate, FACIAL NUMBNESS, 12/12/16) Clavulanic Acid (Verified Allergy, Intermediate, FACIAL NUMBNESS, 12/12/16) Physical Exam Vital Signs Date Time Temp Pulse Resp B/P (MAP) Pulse Ox O2 Delivery O2 Flow Rate FiO2 12/12/16 14:47 98 18 130/86 98 12/12/16 14:00 112 109/86 100 12/12/16 12:00 88 120/70 99 12/12/16 11:28 94 18 101/66 96 12/12/16 09:30 109 115/87 100 12/12/16 09:00 110 119/94 92 Room Air 12/12/16 08:40 119 120/83 100 12/12/16 07:32 131/84 12/12/16 07:16 138 22 124/95 100 Room Air 12/12/16 06:48 36.6 149 20 126/75 92 Room Air Right Eye Acuity: identifies correct # of fingers at 10 feet, reads up close Left Eye Acuity: identifies correct # of fingers at 10 feet, reads up close Physical Exam CONSTITUTIONAL: No acute distress. Well appearing and well nourished. Alert and oriented X 4 with flat affect. HEENT: Normocephalic, atraumatic. Pupils equal, round and reactive to light, EOMI. TMs normal. Pharynx normal. NECK: Supple, full active range of motion without discomfort. RESPIRATORY: Clear to auscultation bilaterally with no wheezing, crackles, rhonchi or stridor. Equal expansion bilaterally. CARDIOVASCULAR: Regular rate and rhythm with no murmurs, rubs or gallops. Normal peripheral perfusion. No edema. GASTROINTESTINAL: Soft, nontender, nondistended. Bowel sounds present in all quadrants. MUSCULOSKELETAL: Full range of motion of all joints without discomfort. INTEGUMENTARY: Few scabbed lesions noted on the distal arms and legs, consistent with recent scabies. No erythema, tenderness, or drainage to indicate infection. NEUROLOGIC: Cranial nerves II-XII grossly intact. No focal neurologic deficits noted. Normal motor, normal sensation, normal gait, normal coordination. Medical Decision & Procedures Laboratory Results 12/12/16 08:30 Red Blood Count 4.75, Mean Corpuscular Volume 81.5, Mean Corpuscular Hemoglobin 28.0, Mean Corpuscular Hemoglobin Concent 34.4, Mean Platelet Volume 10.4, Neutrophils (%) (Auto) 60.1, Lymphocytes (%) (Auto) 28.8, Monocytes (%) (Auto) 9.2, Eosinophils (%) (Auto) 1.5, Basophils (%) (Auto) 0.3, Neutrophils # (Auto) 4.32, Lymphocytes # (Auto) 2.07, Monocytes # (Auto) 0.66, Eosinophils # (Auto) 0.11, Basophils # (Auto) 0.02 12/12/16 08:30 Test 12/12/16 08:24 12/12/16 08:30 12/12/16 10:05 Bedside Glucose 76 mg/dl (70-90) White Blood Count 7.19 K/uL (4.8-10.8) Red Blood Count 4.75 M/uL (4.2-5.4) Hemoglobin 13.3 g/dL (12.0-16.0) Hematocrit 38.7 % (37-47) Mean Corpuscular Volume 81.5 fL (80-100) Mean Corpuscular Hemoglobin 28.0 pg (25-34) Mean Corpuscular Hemoglobin Concent 34.4 g/dl (32-36) Platelet Count 257 K/uL (130-400) Mean Platelet Volume 10.4 fL (7.4-10.4) Neutrophils (%) (Auto) 60.1 % Lymphocytes (%) (Auto) 28.8 % Monocytes (%) (Auto) 9.2 % Eosinophils (%) (Auto) 1.5 % Basophils (%) (Auto) 0.3 % Neutrophils # (Auto) 4.32 K/uL (1.4-6.5) Lymphocytes # (Auto) 2.07 K/uL (1.2-3.4) Monocytes # (Auto) 0.66 K/uL (0.11-0.59) Eosinophils # (Auto) 0.11 K/uL (0-0.5) Basophils # (Auto) 0.02 K/uL (0-0.2) RDW Standard Deviation 36.8 fL (36.4-46.3) RDW Coefficient of Variation 12.5 % (11.5-14.5) Immature Granulocyte % (Auto) 0.1 % Immature Granulocyte # (Auto) 0.01 K/uL (0.00-0.02) Anion Gap 10.0 mmol/L (3-11) Est Creatinine Clear Calc Drug Dose 105.8 ml/min Estimated GFR () 110.4 Estimated GFR (Non- 95.2 BUN/Creatinine Ratio 13.7 (10-20) Calcium Level 9.5 mg/dl (8.5-10.1) Total Bilirubin 0.6 mg/dl (0.2-1) Direct Bilirubin 0.1 mg/dl (0-0.2) Aspartate Amino Transf (AST/SGOT) 18 U/L (15-37) Alanine Aminotransferase (ALT/SGPT) 28 U/L (12-78) Alkaline Phosphatase 72 U/L (45-117) Total Protein 7.5 gm/dl (6.4-8.2) Albumin 3.8 gm/dl (3.4-5.0) Thyroid Stimulating Hormone (TSH) 1.800 uIu/ml (0.300-4.500) Ethyl Alcohol mg/dL < 3.0 mg/dl (0-3) Urine Color YELLOW Urine Appearance CLOUDY (CLEAR) Urine pH 5.0 (4.5-7.5) Urine Specific [place] 1.013 (1.000-1.030) Urine Protein NEG (NEG) Urine Glucose (UA) NEG (NEG) Urine Ketones 1+ (NEG) Urine Occult Blood NEG (NEG) Urine Nitrite NEG (NEG) Urine Bilirubin NEG (NEG) Urine Urobilinogen NEG (NEG) Urine Leukocyte Esterase SMALL (NEG) Urine WBC (Auto) 5-10 /hpf (0-5) Urine RBC (Auto) 0-4 /hpf (0-4) Urine Hyaline Casts (Auto) 1-5 /lpf (0-5) Urine Epithelial Cells (Auto) >30 /lpf (0-5) Urine Bacteria (Auto) NEG (NEG) Urine Test NEG (NEG) Urine Opiates Screen NEG (NEG) Urine Methadone, Qualitative NEG (NEG) Urine Barbiturates NEG (NEG) Urine Phencyclidine (PCP) Level NEG (NEG) Ur Amphetamine/Methamphetamine POS (NEG) MDMA (Ecstasy) Screen NEG (NEG) Urine Benzodiazepines Screen NEG (NEG) Urine Cocaine Metabolite NEG (NEG) Urine Marijuana (THC) NEG (NEG) Medications Administered Medications (Trade) Dose Ordered Sig/Anita Route Start Time Stop Time Status Last Admin Dose Admin Sodium Chloride 1,000 ml @ 999 mls/hr Q1H1M STAT IV 12/12/16 07:50 12/12/16 08:50 DC 12/12/16 08:30 999 MLS/HR ECG Indication: tachycardia Rate (beats per minute): 119 Rhythm: sinus tachycardia Findings: nonspecific-ST abn (Inferior) Change: no significant change (10/21/2016) Medical Decision CC: Patient presenting with complaint of itching eyes and concern for parasites. Interpretation of Labs: No leukocytosis, no anemia, no significant electrolyte abnormalities, normal renal function, no UTI. Urine drug screen positive for amphetamines, otherwise appears to be negative, with send out results pending. Differential Diagnosis: Includes, but not limited to anxiety, electrolyte abnormality, illicit drug abuse, hallucinations, intoxication, parasites or insects infestation Summary: Patient was evaluated at bedside, history of physical exam performed. Patient is alert and oriented and acting appropriately, but with a flat affect, though her stated anxiety level is 10/10. Patient exhibits unusual and concerning behavior regarding possible hallucinations or imagining of parasites and other bugs. Her exam is benign with the exception of healing scabbed rash on extremities consistent with her recent diagnosis of scabies, which was treated by her PCP. She notes multiple concerns about parasites coming from her nose, from her eyes , drinking manufactured bottled water with white parasites floating in it, as well as "slug" allover her dorm room. She also mentions having an unopened ketchup bottle on her bed, and she believes the parasites caused holes in the bottle to get ketchup spots all over her bedspread. She did show me multiple pictures on herself home of these suppose it parasites and slugs, nothing was visualized in these photographs that was consistent with her descriptions. Orders were placed at bedside for labs, urinalysis, urine drug screen, EKG to evaluate for underlying conditions for a medical rule out given suspected psychological issues. Patient discussed with Dr. Porter, who agrees with my assessment and plan. Slit lamp exam was done at bedside, including fluorescein stain, that revealed bilateral small corneal abrasions. Patient has been noted to frequently rub her eyes and was instructed to stop doing this. Labs reviewed, unremarkable as described above. Urine drug screen positive for amphetamines, which is consistent with her prescribed Adderall, and appears to be otherwise negative for illicit drug use. Patient's tachycardia improving after IV fluid bolus. I did have a lengthy conversation on the phone with patient's PCP Dr. Lopez at [facility], who did confirm that she was treated for both scabies and lice as she reported. He stated that she does have a known history of anxiety and possibly PTSD, as well as ADHD, but has not been diagnosed with any significant psych disorders or had any previous inpatient psych admissions. He does recommend stopping patient's Adderall due to her tachycardia and concern for exacerbation of these symptoms. He will see her in follow-up early next week. I did speak with the patient multiple times regarding her symptoms and her results. She seems very relieved that we do not suspect any parasites. She does contract for safety and denies any SI/HI. She was seen by Alicia, ED psych foster care case manager, who provided the patient with some outpatient resources for her anxiety. The patient states she feels comfortable with plan for discharge. The patient's course was fully discussed with Dr. Porter, who agrees with the plan of care and disposition. Impression Primary Impression: Infestation by insect Additional Impressions: Anxiety Bilateral corneal abrasions Departure Information Dispostion Home / Self-Care Condition GOOD Prescriptions Ciprofloxacin Ophth Soln (CIPROFLOXACIN OPHTH SOLN) 0.3 % Kendra 2 DROPS OPB QID for 7 Days, #5 ML Prov: Gita Contreras CRNP 12/12/16 Referrals [facility] (PCP) Patient Instructions ED Panic Attack, ED Psychosis, [facility], Scabies Additional Instructions STOP taking your Adderall completely. This is most likely contributing to some of your symptoms of anxiety. You may continue to use your prescribed Ativan as needed for your anxiety symptoms. Take only as prescribed. There is no evidence of parasites infecting your body based on our exam from today. You have small abrasions (scratches) on both of your corneas (eyes), most likely from frequently rubbing your eyes. Avoid rubbing your eyes, as this can continue to irritate them. A prescription for antibiotic drops for your eyes was sent to help treat the abrasions. Use as directed for the full 7 days. Plan to follow-up with your PCP early next week and you can discuss your Adderall at that time. Please return to the ER for worsening symptoms including severe pain, persistent vomiting, fever/chills, or any other concerns. Problem Qualifiers Additional Impressions: Bilateral corneal abrasions Encounter type: initial encounter Qualified Codes: S05.01XA - Injury of conjunctiva and corneal abrasion without foreign body, right eye, initial encounter; S05.02XA - Injury of conjunctiva and corneal abrasion without foreign body, left eye, initial encounter
[2016-12-12 14:47] VITALS: BP 130/86; PULSE 98; O2SAT 98
[2016-12-12] MEDS ORDERED: CIPR0.3S4 OPB (16:52)
[2016-12-16 11:29] LABS: SYNTHETIC CANNABINOIDS QL URIN NEGATIVE (Negative)
[2016-12-25] MEDS ORDERED: RSP1 PO (10:04)
[2016-12-25] MEDS ORDERED: ATR25 PO (10:04)
[2016-12-25] MEDS ORDERED: LXP10 PO (10:04)
== END 2016-12-12 14:49 | disposition home or self-care (01) ==
LOC: C.EDB 06:46 → C.EDA 14:49
DX: B88.9 Infestation, unspecified (principal); F41.9 Anxiety disorder, unspecified; S05.01XA Injury of conjunctiva and corneal abrasion without foreign body, right eye, initial encounter; S05.02XA Injury of conjunctiva and corneal abrasion without foreign body, left eye, initial encounter; X58.XXXA Exposure to other specified factors, initial encounter; R00.0 Tachycardia, unspecified; F90.9 Attention-deficit hyperactivity disorder, unspecified type; F17.200 Nicotine dependence, unspecified, uncomplicated; Z79.3 Long term (current) use of hormonal contraceptives; Z82.49 Family history of ischemic heart disease and other diseases of the circulatory system

== ENCOUNTER 2016-12-16 22:39 | Emergency (ER) | payer BC ==
[~2016-12-16] VITALS: Ht 162.6 cm; Wt 80.0 kg
[~2016-12-16 22:39] MED LIST changes: +CIPR0.3S4 OPB; -CLIN300C2 PO
[2016-12-16 22:46] VITALS: Ht 162.6 cm; Wt 80.0 kg
[2016-12-16] MEDS ORDERED: SODIUM CHLORIDE 0.9% 1000ML 1,000 ML IV ONE (23:45)
[2016-12-17 00:02] LABS: BASO % 0.2 %; BASO ABS # 0.01 K/uL (0-0.2); COMPLETE YES; EOS % 2.3 %; HEMATOCRIT 37.5 % (37-47); IG% 0.2 %; LYMPH % 36.9 %; LYMPH ABS # 1.61 K/uL (1.2-3.4); MEAN CORPUSCULAR HEMOGLOBIN 26.7 pg (25-34); MEAN CORPUSCULAR HGB CONC 33.3 g/dl (32-36); MEAN PLATELET VOLUME 10.6 fL (7.4-10.4); MONO % 11.5 %; NEUT % 48.9 %; PLATELET COUNT 279 K/uL (130-400); RED BLOOD COUNT 4.69 M/uL (4.2-5.4); WHITE BLOOD COUNT 4.36 K/uL (4.8-10.8)
[2016-12-17 00:21] LABS: BUN/CREATININE RATIO 7.4 (10-20); CALCIUM 8.9 mg/dl (8.5-10.1); CREATININE 0.98 mg/dl (0.60-1.20)
[2016-12-17 00:32] LABS: ALB/GLOB RATIO 1.1 (0.9-2); THYROID STIMULATING HORMONE 1.73 uIu/ml (0.300-4.500)
[2016-12-17 00:33] LABS: LYME DISEASE AB IGG NEG (NEG); LYME DISEASE AB IGM NEG (NEG)
[2016-12-17 00:42] LABS: ACETAMINOPHEN 4 ug/ml (10-30)
[2016-12-17 01:10] LABS: URINE APPEARANCE TURBID (CLEAR); URINE COLOR DK YELLOW; URINE EPITHELIAL CELL AUTO >30 /lpf (0-5); URINE NITRITE NEG (NEG); URINE SPECIFIC GRAVITY 1.029 (1.000-1.030); UROBILINOGEN NEG (NEG); ZZUR CULT IF INDIC CLEAN CATCH YES
[2016-12-17 01:12] LABS: MANUAL MICROSCOPIC REQUIRED? NO; REVIEW REQ? YES
[2016-12-17 01:13] LABS: URINE BILIRUBIN NEG (NEG)
[2016-12-17 01:33] LABS: BENZODIAZEPINE, URINE NEG (NEG); COCAINE,URINE NEG (NEG); PHENCYCLIDINE, URINE NEG (NEG)
[2016-12-17] MEDS ORDERED: POTASSIUM CHLORIDE 10 MEQ TABCR PO STA (01:46)
[2016-12-17] MEDS ORDERED: CEPH500C PO (01:48)
[2016-12-17] MEDS ORDERED: CEPHALEXIN 500MG HOME PACK 1 EA BTL PO ONE (02:00)
[2016-12-17 02:13] VITALS: BP 128/82; PULSE 108; TEMP 36.9; O2SAT 99
--- NOTE | 2016-12-17 03:49 | EMERGENCY ROOM VISIT NOTE ---
History First contact with patient: 23:25 Chief Complaint: ABDOMINAL PAIN Stated Complaint: ABD PAIN Nursing Triage Summary: pt seen here last week for rash on right FA from fleas. today abd pain in Lower right quadrant and rash is worse. pain started approx 30 min ago History of Present Illness The patient is a 21 year old female who presents to the Emergency Room with complaints of irritation and redness of her right forearm. The patient has had a previous diagnosis of scabies and fleas while living in her dorm. She has completed Permethrin, but now has irritation in the right forearm where she had been itching. The patient is also complaining of some right-sided lower abdominal pain. She has not had fever or chills. The patient is accompanied by a resident life gentleman from the [place]. The patient has had some increasing symptoms that have been concerning for mental health disease. The patient is not suicidal or homicidal. She has seen the counseling group at [facility] and does have outpatient services. She rates her current discomfort a 3/10. Review of Systems More than 10 systems were reviewed and otherwise negative with the exception of history of present illness. Past Medical/Surgical History Medical Problems: (1) ADHD (attention deficit hyperactivity disorder) Family History Hypertension Social History Smoking Status: Current Some Day Smoker Alcohol Use: none Drug Use: none Marital Status: single Housing Status: lives with roommate Occupation Status: [employer] student Current/Historical Medications Scheduled Amphetamine-Dextroamphetamine 20MG (Adderall 20MG), 20 MG PO TID Control Pills ( Control Pills), 1 TAB PO DAILY Cephalexin Monohydrate (Keflex), 500 MG PO TID Ciprofloxacin Ophth Soln (Ciprofloxacin Ophth Soln), 2 DROPS OPB QID Scheduled PRN Lorazepam (Ativan), 0.5 MG PO BID PRN for Anxiety Allergies Coded Allergies: Amoxicillin (Verified Allergy, Intermediate, FACIAL NUMBNESS, 12/16/16) Clavulanic Acid (Verified Allergy, Intermediate, FACIAL NUMBNESS, 12/16/16) Physical Exam Vital Signs Date Time Temp Pulse Resp B/P (MAP) Pulse Ox O2 Delivery O2 Flow Rate FiO2 12/17/16 02:13 36.9 108 16 128/82 99 12/17/16 01:07 113 16 110/70 100 Room Air 12/16/16 22:46 36.7 124 18 124/88 97 Room Air Pain Rating (0-10): 0 Physical Exam VITALS: Vitals are noted on the nurse's note and reviewed by myself. Vital signs stable. GENERAL: Well-developed, well-nourished, white female, who is in no acute distress and resting comfortably. Patient is cooperative with the examination. HEAD: Normocephalic atraumatic. HEART: Regular rate and rhythm without murmurs gallops or rubs. LUNGS: Clear to auscultation bilaterally without wheezes, rales or rhonchi. No retractions or accessory muscle use. ABDOMEN: Positive normal bowel sounds x 4. Soft, nontender, without masses or organomegaly. No guarding or rebound tenderness. No CVA tenderness. MUSCULOSKELETAL: There is some edema along the anterior right forearm measuring approximately 4-5 cm in maximum length. This area is excoriated centrally and may represent a cellulitis NEURO: Patient was alert and oriented to person place and time. CN II through XII grossly intact. Medical Decision & Procedures Laboratory Results 12/16/16 22:55 Red Blood Count 4.69, Mean Corpuscular Volume 80.0, Mean Corpuscular Hemoglobin 26.7, Mean Corpuscular Hemoglobin Concent 33.3, Mean Platelet Volume 10.6, Neutrophils (%) (Auto) 48.9, Lymphocytes (%) (Auto) 36.9, Monocytes (%) (Auto) 11.5, Eosinophils (%) (Auto) 2.3, Basophils (%) (Auto) 0.2, Neutrophils # (Auto ) 2.13, Lymphocytes # (Auto) 1.61, Monocytes # (Auto) 0.50, Eosinophils # (Auto ) 0.10, Basophils # (Auto) 0.01 12/16/16 22:55 Test 12/16/16 22:55 12/16/16 23:43 12/16/16 23:58 12/17/16 00:52 White Blood Count 4.36 K/uL (4.8-10.8) Red Blood Count 4.69 M/uL (4.2-5.4) Hemoglobin 12.5 g/dL (12.0-16.0) Hematocrit 37.5 % (37-47) Mean Corpuscular Volume 80.0 fL (80-100) Mean Corpuscular Hemoglobin 26.7 pg (25-34) Mean Corpuscular Hemoglobin Concent 33.3 g/dl (32-36) Platelet Count 279 K/uL (130-400) Mean Platelet Volume 10.6 fL (7.4-10.4) Neutrophils (%) (Auto) 48.9 % Lymphocytes (%) (Auto) 36.9 % Monocytes (%) (Auto) 11.5 % Eosinophils (%) (Auto) 2.3 % Basophils (%) (Auto) 0.2 % Neutrophils # (Auto) 2.13 K/uL (1.4-6.5) Lymphocytes # (Auto) 1.61 K/uL (1.2-3.4) Monocytes # (Auto) 0.50 K/uL (0.11-0.59) Eosinophils # (Auto) 0.10 K/uL (0-0.5) Basophils # (Auto) 0.01 K/uL (0-0.2) RDW Standard Deviation 36.7 fL (36.4-46.3) RDW Coefficient of Variation 12.9 % (11.5-14.5) Immature Granulocyte % (Auto) 0.2 % Immature Granulocyte # (Auto) 0.01 K/uL (0.00-0.02) Anion Gap 9.0 mmol/L (3-11) Est Creatinine Clear Calc Drug Dose 91.4 ml/min Estimated GFR () 94.2 Estimated GFR (Non- 81.3 BUN/Creatinine Ratio 7.4 (10-20) Calcium Level 8.9 mg/dl (8.5-10.1) Total Bilirubin 0.5 mg/dl (0.2-1) Aspartate Amino Transf (AST/SGOT) 26 U/L (15-37) Alanine Aminotransferase (ALT/SGPT) 36 U/L (12-78) Alkaline Phosphatase 68 U/L (45-117) Total Protein 7.2 gm/dl (6.4-8.2) Albumin 3.8 gm/dl (3.4-5.0) Globulin 3.4 gm/dl (2.5-4.0) Albumin/Globulin Ratio 1.1 (0.9-2) Lipase 64 U/L (73-393) Thyroid Stimulating Hormone (TSH) 1.730 uIu/ml (0.300-4.500) Lyme Disease IgG Antibody NEG (NEG) Lyme Disease IgM Antibody NEG (NEG) Salicylates Level < 1.7 mg/dl (2.8-20) Acetaminophen Level 4 ug/ml (10-30) Ethyl Alcohol mg/dL < 3.0 mg/dl (0-3) Urine Color DK YELLOW Urine Appearance TURBID (CLEAR) Urine pH 5.0 (4.5-7.5) Urine Specific [place] 1.029 (1.000-1.030) Urine Protein TRACE (NEG) Urine Glucose (UA) NEG (NEG) Urine Ketones 1+ (NEG) Urine Occult Blood 1+ (NEG) Urine Nitrite NEG (NEG) Urine Bilirubin NEG (NEG) Urine Urobilinogen NEG (NEG) Urine Leukocyte Esterase MODERATE (NEG) Urine WBC (Auto) >30 /hpf (0-5) Urine RBC (Auto) 5-10 /hpf (0-4) Urine Hyaline Casts (Auto) 0 /lpf (0-5) Urine Epithelial Cells (Auto) >30 /lpf (0-5) Urine Bacteria (Auto) 2+ (NEG) Urine Pathogenic Casts /lpf (0) Urine Yeast (Auto) (NONE PRSENT) Urine Test NEG (NEG) Urine Opiates Screen NEG (NEG) Urine Methadone, Qualitative NEG (NEG) Urine Barbiturates NEG (NEG) Urine Phencyclidine (PCP) Level NEG (NEG) Ur Amphetamine/Methamphetamine POS (NEG) MDMA (Ecstasy) Screen POS (NEG) Urine Benzodiazepines Screen NEG (NEG) Urine Cocaine Metabolite NEG (NEG) Urine Marijuana (THC) NEG (NEG) Medications Administered Medications (Trade) Dose Ordered Sig/Anita Route Start Time Stop Time Status Last Admin Dose Admin Sodium Chloride 1,000 ml @ 999 mls/hr Q1H1M ONCE IV 12/16/16 23:45 12/17/16 00:45 DC 12/17/16 00:05 999 MLS/HR Potassium Chloride (Klor-Con M10) 20 meq NOW STAT PO 12/17/16 01:46 12/17/16 01:47 DC 12/17/16 02:06 20 MEQ Cephalexin Monohydrate (Keflex 500MG Home Pack) 1 homepack NOW ONCE PO 12/17/16 02:00 12/17/16 02:01 DC 12/17/16 02:07 1 HOMEPACK ED Course Physical exam and history were performed. Nursing notes and EMR were reviewed. Patient appears to have complaints of infection to her right forearm, which does appear with some cellulitis. Additionally there is some concern for the patient's overall mental health. IV access was established and labs were obtained. The patient was hydrated and medicated as above. The patient's blood work is without a significantly elevated white blood cell count, anemia, or bandemia. Her potassium is slightly low and this was repleted orally. Lyme is negative. Tylenol and salicylate are negative. Drug of abuse is positive for amphetamines, but she is on Adderall. Her urine may represent infection with culture pending. I discussed options of care with the patient. She now tells me that she just started a course of Bactrim. She is to continue this medication. I will provide her a course of Keflex in addition to her Bactrim. I did discuss with her the possibility of needing a mental health evaluation. The patient indicated to me that she felt comfortable going home, and she does not have a need for evaluation here. She does have outpatient services and certainly is not suicidal or homicidal. This appears reasonable as the patient is not felt to be a danger to herself or others. The patient was invited back to the ER with any new, worsening, or concerning symptoms. The chart was completed utilizing [employer] Interactive Speech Voice Recognition Software. Grammatical errors, random word insertions, pronoun errors, and incomplete sentences are an occasional consequence of this system due to software limitations, ambient noise, and hardware issues. Any formal questions or concerns about the content, text, or information contained within the body of this dictation should be directly addressed to the provider for clarification. . Medical Decision Differential diagnosis: Etiologies such as cellulitis, abscess, MRSA infection, DVT, necrotizing fasciitis, dermatitis, drug eruption, as well as others were entertained.. Impression Primary Impression: Cellulitis of arm Departure Information Dispostion Home / Self-Care Condition GOOD Prescriptions Cephalexin Monohydrate (Keflex) 500 Mg Cap 500 MG PO TID for 7 Days, #21 CAP Prov: Nitesh Bae PA-C 12/17/16 Forms HOME CARE DOCUMENTATION FORM, IMPORTANT VISIT INFORMATION Patient Instructions [facility] Additional Instructions You were seen and evaluated today on an emergency basis only. This is not a substitute for, or an effort to provide, complete comprehensive medical care. It is not possible to recognize and treat all injuries or illnesses in a single emergency department visit. For this reason it is recommended that you followup with [facility] this week for ongoing care and evaluation. Continue your medications as previously prescribed. Cephalexin(Keflex) 500mg: Take one pill 3 times daily for 7 days for your skin infection. All antibiotics can cause diarrhea. If this occurs and you feel worse or it does not resolve in 1-2 days follow up with your doctor or return to the Emergency Department as this could be signs of serious underlying problems. Any medication can cause an allergic reaction, stop the pills immediately and return to the ER for rash, hives, breathing difficulties, or swelling. You are welcome to return to the emergency department anytime with new, worsening, or concerning symptoms.
--- NOTE | 2016-12-17 06:46 | DIAGNOSTIC IMAGING REPORT ---
KUB CLINICAL HISTORY: Right side abd discomfort COMPARISON STUDY: No previous studies for comparison. FINDINGS: There is no pathologic bowel dilatation. There are no calcifications suspicious for renal calculi. There are a few tiny nonspecific pelvic basin calcifications. IMPRESSION: 1. No evidence of pathologic bowel dilatation 2. Tiny nonspecific pelvic basin calcifications Electronically signed by: Juan Jose Olvera M.D. 12/17/2016 6:45 AM Dictated Date/Time: 12/17/2016 6:44 AM
[2016-12-25] MEDS ORDERED: ATR25 PO (10:04)
[2016-12-25] MEDS ORDERED: RSP1 PO (10:04)
[2016-12-25] MEDS ORDERED: LXP10 PO (10:04)
== END 2016-12-17 02:14 | disposition home or self-care (01) ==
LOC: EDBD 22:39 → C.EDC 22:40
DX: L03.113 Cellulitis of right upper limb (principal); F90.9 Attention-deficit hyperactivity disorder, unspecified type; Z82.49 Family history of ischemic heart disease and other diseases of the circulatory system; F17.210 Nicotine dependence, cigarettes, uncomplicated; Z79.3 Long term (current) use of hormonal contraceptives; Z79.899 Other long term (current) drug therapy; E87.6 Hypokalemia

== ENCOUNTER 2016-12-18 01:49 | Emergency (ER) | payer BC ==
[~2016-12-18] VITALS: Ht 162.6 cm; Wt 81.8 kg
[~2016-12-18 01:49] MED LIST changes: +CEPH500C PO
[2016-12-18 02:00] VITALS: TEMP 36.9; Ht 162.6 cm; Wt 81.8 kg
--- NOTE | 2016-12-18 02:05 | EMERGENCY ROOM VISIT NOTE ---
History First contact with patient: : Chief Complaint: FINGER PAIN Stated Complaint: FINGER INJURY History of Present Illness The patient is a 21 year old female who presents to the Emergency Room with complaints of left finger pain and irritation after getting sprayed by a bug 2 hours ago. Patient is unsure what type of bug it was. Patient is been touching the area. She is currently on Keflex and Bactrim for an insect bite on her right for medicine affected. This is day 3 for her. Tetanus is current. This is the patient's third ER visit this week alone for insect bites. Patient denies chest pain, dyspnea, numbness, tingling, fever, chills. Review of Systems See HPI for pertinent positives & negatives. A total of 10 systems reviewed and were otherwise negative. Past Medical/Surgical History Medical Problems: (1) ADHD (attention deficit hyperactivity disorder) Family History Hypertension Social History Smoking Status: Current Some Day Smoker Alcohol Use: none Drug Use: none Marital Status: single Housing Status: lives with roommate Occupation Status: [employer] student Current/Historical Medications Scheduled Amphetamine-Dextroamphetamine 20MG (Adderall 20MG), 20 MG PO TID Control Pills ( Control Pills), 1 TAB PO DAILY Cephalexin Monohydrate (Keflex), 500 MG PO TID Ciprofloxacin Ophth Soln (Ciprofloxacin Ophth Soln), 2 DROPS OPB QID Scheduled PRN Lorazepam (Ativan), 0.5 MG PO BID PRN for Anxiety Allergies Coded Allergies: Amoxicillin (Verified Allergy, Intermediate, FACIAL NUMBNESS, 12/16/16) Clavulanic Acid (Verified Allergy, Intermediate, FACIAL NUMBNESS, 12/16/16) Physical Exam Physical Exam VITALS: Vitals are noted on the nurse's note and reviewed by myself. Vital signs stable. GENERAL: Pleasant female, in no acute distress, nondiaphoretic, well-developed well-nourished. SKIN: Right forearm with healing insect bites with no lymphangitis or palpable abscess, left hand second finger with minimal erythema to the tip of the finger without lymphangitis or palpable abscess Capillary reflex less than 2 seconds. HEENT: Normocephalic. PERRLA. EOMI. Nares patent. Mucous membranes moist. Neck is supple without nuchal rigidity. HEART: Regular rate and rhythm without murmurs gallops or rubs. LUNGS: Clear to auscultation bilaterally without wheezes, rales or rhonchi. No retractions or accessory muscle use. MUSCULOSKELETAL: No gross musculoskeletal defects. Left hand and fingers nontender to palpation with full range of motion. No signs of tendon infection. NEURO: Patient was alert and oriented to person place and time. Normal sensation to light and sharp touch. No focal neurological deficits. Medical Decision & Procedures ED Course Prior records reviewed and summarized as above. Triage Nursing notes reviewed. Additional history obtained from EMS The patient's history was concerning for redness of the skin. Differential diagnosis: Etiologies such as infected insect bite, cellulitis, abscess, MRSA infection, necrotizing fasciitis, dermatitis, drug eruption, as well as others were entertained.. Physical examination: The physical examination was consistent with insect bite ER treatment provided: Wound care by nursing On reassessment the patient felt better. Diagnostics interpreted by me: Deferred This appears to be isolated insect bite to finger. Patient has been picking at the area. She is currently on antibiotics. She is strongly encouraged not to pick at the area and to keep the area dry and clean and use bacitracin until healed. She is advised follow-up health services in 2 days or here in the ER sooner for redness, drainage, spreading infection, worsening signs or symptoms or as needed. Patient was neurovascularly and neurologically intact. By the evaluation outlined above emergent etiologies such as abscess, necrotizing fasciitis, as well as others were deemed relatively unlikely. The pt informed about the findings as listed above. All questions were answered and pleased with the treatment. Return instructions were outlined and the patient was discharged in stable condition. Referral: The patient was referred back to primary care physician for follow-up in 2 to 3 days for a recheck of the current condition. Medical Decision As above Impression Primary Impression: Insect bite Departure Information Dispostion Home / Self-Care Condition GOOD Forms WORK / SCHOOL INSTRUCTIONS, HOME CARE DOCUMENTATION FORM, IMPORTANT VISIT INFORMATION Patient Instructions [facility] Additional Instructions Antibiotic ointment and bandage to the areas until healed. Follow up with family doctor or return for any signs of infection (increasing redness, swelling , drainage, or fever). Keep covered when in sun until fully healed then SPF 50 or higher until scar healed. Continue your Cephalexin(Keflex) 500mg: Take one pill four times daily for your skin infection. All antibiotics can cause diarrhea. If this occurs and you feel worse or it does not resolve in 1-2 days follow up with your doctor or return to the Emergency Department as this could be signs of serious underlying problems. Any medication can cause an allergic reaction, stop the pills immediately and return to the ER for rash, hives, breathing difficulties, or swelling. and Trimethoprim-Sulfamethoxazole(Bactrim DS): Take one pill twice daily for your skin infection. All antibiotics can cause diarrhea. If this occurs and you feel worse or it does not resolve in 1-2 days follow up with your doctor or return to the Emergency Department as this could be signs of serious underlying problems. Any medication can cause an allergic reaction, stop the pills immediately and return to the ER for rash, hives, breathing difficulties, or swelling. Ibuprofen(Motrin, Advil) may be used for fever or pain. Use 600mg every six hours as needed. Take with food. Avoid using more than 2400mg in a 24 hour period. Do not use 2400mg per day for more than three consecutive days without physician direction. Prolonged inappropriate use can lead to stomach upset or ulcers. (AND/OR) Acetaminophen(Tylenol) may be used for fever or pain. Use 1000mg every six hours as needed. Avoid using more than 3000mg in a 24 hour period. Do not pick at your bug bite sites. Rest and drink plenty of fluids. Continue current medications. Return to the ER for severe pain, persistent fevers, spreading redness, or any worsening of your condition. Follow up with your primary physician within 2-3 days for a recheck of the current condition. Problem Qualifiers Primary Impression: Insect bite Encounter type: initial encounter Qualified Codes: W57.XXXA - Bitten or stung by nonvenomous insect and other nonvenomous arthropods, initial encounter
[2016-12-18] MEDS ORDERED: ACETAMINOPHEN 500 MG TAB PO STA (02:12)
[2016-12-18 02:30] VITALS: BP 121/95; PULSE 128; O2SAT 99
[2016-12-25] MEDS ORDERED: RSP1 PO (10:04)
[2016-12-25] MEDS ORDERED: LXP10 PO (10:04)
[2016-12-25] MEDS ORDERED: ATR25 PO (10:04)
== END 2016-12-18 02:30 | disposition home or self-care (01) ==
LOC: C.EDB 01:49 → EDBD 01:49 → C.EDB 02:30
DX: S60.461A Insect bite (nonvenomous) of left index finger, initial encounter (principal); W57.XXXA Bitten or stung by nonvenomous insect and other nonvenomous arthropods, initial encounter; F90.9 Attention-deficit hyperactivity disorder, unspecified type; Z82.49 Family history of ischemic heart disease and other diseases of the circulatory system; F17.210 Nicotine dependence, cigarettes, uncomplicated; Z79.3 Long term (current) use of hormonal contraceptives; Z79.899 Other long term (current) drug therapy

== ENCOUNTER 2016-12-18 18:11 | Inpatient (IN) | payer BC ==
[~2016-12-18] VITALS: Ht 162.6 cm; Wt 80.6 kg
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
[2016-12-18 19:27] LABS: BASO % 0.4 %; BASO ABS # 0.02 K/uL (0-0.2); COMPLETE YES; EOS % 1.8 %; LYMPH % 42.8 %; LYMPH ABS # 1.93 K/uL (1.2-3.4); MEAN CELL VOLUME 80.6 fL (80-100); MEAN CORPUSCULAR HEMOGLOBIN 28.1 pg (25-34); MEAN CORPUSCULAR HGB CONC 34.9 g/dl (32-36); MEAN PLATELET VOLUME 10.1 fL (7.4-10.4); MONO % 7.5 %; NEUT % 47.5 %; PLATELET COUNT 230 K/uL (130-400); RED BLOOD COUNT 4.34 M/uL (4.2-5.4); WHITE BLOOD COUNT 4.51 K/uL (4.8-10.8)
[2016-12-18 19:47] LABS: BUN/CREATININE RATIO 7.8 (10-20); CALCIUM 8.7 mg/dl (8.5-10.1); CREATININE 0.83 mg/dl (0.60-1.20); POTASSIUM 2.9 mmol/L (3.5-5.1)
[2016-12-18 19:48] LABS: BENZODIAZEPINE, URINE NEG (NEG); COCAINE,URINE NEG (NEG); PHENCYCLIDINE, URINE NEG (NEG)
[2016-12-18 19:59] LABS: THYROID STIMULATING HORMONE 1.26 uIu/ml (0.300-4.500)
[2016-12-18] MEDS ORDERED: POTASSIUM CHLORIDE 10 MEQ TABCR PO STA (20:33)
[2016-12-18] MEDS ORDERED: SODIUM CHLORIDE 0.65% NA SOLN 45 ML (OCEAN) PRN (21:30)
[2016-12-18] MEDS ORDERED: BISMUTH SUBSALICYLATE PER ML OMNICELL CHARGE PO PRN (21:30)
[2016-12-18] MEDS ORDERED: MAGNESIUM HYDROXIDE SUSP 30 ML UDC PO PRN (21:30)
[2016-12-18] MEDS ORDERED: NICOTINE POLACRILEX 2 MG GUM MT PRN (21:30)
[2016-12-18] MEDS ORDERED: LORAZEPAM 0.5 MG TAB PO PRN (21:30)
[2016-12-18] MEDS ORDERED: ALUMINUM/MAGNESIUM SUSP 30 ML UDC PO PRN (21:30)
[2016-12-18] MEDS ORDERED: hydrOXYzine HCL 25 MG TAB PO PRN (21:30)
[2016-12-19 00:16] VITALS: O2SAT 99
[2016-12-19 01:05] VITALS: BP 134/88; PULSE 120; TEMP 36.3; Ht 162.6 cm; Wt 80.6 kg
[2016-12-19] MEDS: ACETAMINOPHEN 325 MG TAB PO PRN ×2 (01:06→22:24)
[2016-12-19] MEDS: CEPHALEXIN MONOHYDRATE 500 MG CAP PO SCH ×5 (01:29→17:55)
[2016-12-19 06:41] VITALS: BP_SYST 111; BP_SYST 117; BP_DIAS 79; BP_DIAS 86; PULSE 79; PULSE 84; TEMP 36.4
[2016-12-19] MEDS: NICOTINE 14 MG/24 HR TDSY TD SCH (09:00)
[2016-12-19] MEDS: CIPROFLOXACIN HCL 0.3% OP SOLN 2.5 ML BTL OPB SCH ×4 (09:07→21:07)
[2016-12-19] MEDS: LORAZEPAM 1 MG TAB PO PRN ×2 (12:58→21:07)
[2016-12-19] MEDS ORDERED: RISPERIDONE ODT 0.5MG PO PRN (13:00)
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
[2016-12-19] MEDS: [UNRECOGNIZED DRUG - OTHER] SCH (15:37)
[2016-12-19] MEDS: ESCITALOPRAM OXALATE 10 MG TAB PO SCH (21:07)
[2016-12-19] MEDS ORDERED: LORAZEPAM 1 MG TAB PO PRN (22:00)
[2016-12-19 22:51] LABS: PREG INTERNAL NEGATIVE QC NEG CLEAR BACKGROUND; PREG INTERNAL POSITIVE QC POS CONTROL LINE
[2016-12-19 22:52] LABS: URINE APPEARANCE CLOUDY (CLEAR); URINE BILIRUBIN NEG (NEG); URINE COLOR YELLOW; URINE EPITHELIAL CELL AUTO >30 /lpf (0-5); URINE NITRITE NEG (NEG); URINE PH 5.5 (4.5-7.5); URINE SPECIFIC GRAVITY 1.014 (1.000-1.030); UROBILINOGEN NEG (NEG); ZZUR CULT IF INDIC CLEAN CATCH YES
[2016-12-19 22:53] LABS: MANUAL MICROSCOPIC REQUIRED? NO; REVIEW REQ? YES
[2016-12-19] MEDS: hydrOXYzine HCL 25 MG TAB PO PRN (23:49)
[2016-12-20 06:55] VITALS: BP_SYST 104; BP_SYST 108; BP_DIAS 70; BP_DIAS 74; PULSE 101; PULSE 76; TEMP 36.4
[2016-12-20 07:57] LABS: BLOOD UREA NITROGEN 5 mg/dl (7-18); BUN/CREATININE RATIO 7.3 (10-20); CALCIUM 8.4 mg/dl (8.5-10.1); CARBON DIOXIDE 24 mmol/L (21-32); CHLORIDE 110 mmol/L (98-107); CREATININE 0.66 mg/dl (0.60-1.20); GLUCOSE 82 mg/dl (70-99); SODIUM 143 mmol/L (136-145)
[2016-12-20] MEDS: [UNRECOGNIZED DRUG - OTHER] SCH ×3 (08:00→15:58)
[2016-12-20] MEDS: CIPROFLOXACIN HCL 0.3% OP SOLN 2.5 ML BTL OPB SCH ×5 (09:00→21:11)
[2016-12-20] MEDS: NICOTINE 14 MG/24 HR TDSY TD SCH (09:00)
[2016-12-20] MEDS: CEPHALEXIN MONOHYDRATE 500 MG CAP PO SCH ×3 (09:22→21:06)
--- NOTE | 2016-12-20 11:07 | Psychiatric Progress Notes ---
Progress Note Date of Service Dec 20, 2016. Interval History Sushila Funes, who prefers Cheryl, is a 21-year-old female admitted on . She currently lives in [place], is a [employer] student, and has a history of PTSD, ADHD, and anxiety. She presented with psychosis (delusions of parasites ) and anxiety, after 4 visits to the ER in the past week for concerns for infestation. She was admitted voluntarily, but there is a 302 petition. She immediately submitted her 72 hour notice to withdraw from treatment. Chief Complaint "I want to be back to work tomorrow, when can I restart my ADHD medication". Subjective Patient was seen & assessed interval progress reviewed with Treatment Team. Her PCP did meet with her on the unit last pm and she ultimately agreed to take the prn dose of Risperdal. She was very focussed on inability to attend and headache which she attributes to lack of Adderall. Reviewed that amphetamines can contribute to psychosis, particularly formication and she then changed her focus stating that she doesn't have "bug issues" here. Reviewed why it is recommended that she continue hospitalization--not eating well related to psychiatric condition with hypokalemia and ongoing evidence of thought disorganization. Answered all questions re: Risperdal to her satisfaction. She was agreeable to rescinding her 72 hour notice. Review of Systems Psych: denies symptoms other than stated above Constitutional: denied Cardiovascular: denied GI: denied Neurologic: denied Remainder of 10 body systems also reviewed and denied other than noted above. Sleep Information Total Hours of Sleep: 5.50 Meal Information Percent of Breakfast Consumed: 50 Percent of Lunch Consumed: 100 Percent of Dinner Consumed: 100 Mental Status Exam During interview pt is: alert and oriented, cooperative Appearance: appropriately dressed, appropriately groomed, appeared stated age Eye contact is: fair Motor behavior is: steady gait & station Speech: normal in rate, rhythm & volume Affect: constricted Mood is: anxious Thought process: circumstantial Thought content: paranoid, delusions Suicidal thought are: denied Homicidal thoughts are: denied Hallucinations: denies auditory, denies visual Cognition: language grossly intact, other (concentration impaired) Intelligence estimated to be: consistent with level of education Insight: impaired Judgement: impaired Impression 21-year-old single [employer] student with a history of PTSD, ADHD, and anxiety who 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 She has very limited insight, and has been seen by her PCP, urgent care, and the emergency room many times in the past couple of weeks for these concerns. She requires inpatient treatment as her symptoms are severe, causing her to be unable to function, as she has not been able to focus in school or provide for her own basic needs. Her dorm room is in disarray, she has not been eating and has lost a significant amount of weight, and is hypokalemic. She has also caused injury to herself by excessive scratching, resulting in cellulitis and the need for antibiotic treatment. She is at high risk for harm to herself if discharged prematurely, and although she is here on a voluntary admission, has requested discharge, and may require involuntary commitment. Plan (1) Psychosis on admission--Differential includes primary thought disorder (delusional disorder), substance induced psychosis (prescription stimulants), psychotic mood disorder, and psychosis due to general medical condition. There is little to support a diagnosis of mood disorder or medical condition, and she has been on the same dose of Adderall for over a year, making substance induced psychosis less likely. We will hold the stimulants, due to concerns that it may be contributed to symptoms could certainly been worsening anxiety as well. 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 I will start by ordering risperidone 0.5 mg when necessary for psychosis. Her PCP indicates that he will be visiting her tonight and will encourage her to accept treatment. It may also be helpful to involve [facility] life as her significant concerns about her ability to function independently at this time. - She will require referral for outpatient psychiatric follow-up. - Encourage family meeting, although at this time, she is unwilling to involve her parents. - She has submitted a 72 hour notice requesting to withdraw from treatment. There is a backup 302 petition, and after discussing her case with her PCP and getting collateral information from [facility], it appears there are significant risks in discharging her prematurely. We reviewed the recommendations to stay in the hospital until her symptoms are well-controlled and she has a good outpatient plan, and the possibility of an involuntary commitment if she is unwilling to do so. 12/20--suspect induced by Adderall. Based on review of admission, delusions appear to be resolving. Thought disorganization continues. Risks/benefits/ alternatives reviewed re: Risperdal trial. Discussion included but was not limited to risks of TD and metabolic abnormalities. Agreeable to 1 mg Risperdal M tab at hs. Will order fasting metabolic panel in am. (2) Anxiety Patient meets criteria for generalized anxiety disorder and PTSD. She is willing for a trial of an SSRI antidepressant to target these symptoms. We discussed escitalopram, and we'll start 10 mg daily at bedtime tonight. Titrate as tolerated. Refer for outpatient therapy. (3) ADHD (attention deficit hyperactivity disorder) Hold stimulant as above. Consider exploration of other non-stimulant options for treatment of ADHD. Hopefully attention will improve once anxiety is under better control. 12/20--unable to comment on accuracy of diagnosis given resolving psychosis. She does note that Strattera was not helpful in the past. Reviewed that the only other non-stimulant option (guanfacine) is not available here on formulary and that I would encourage waiting until she is more stable to resume ADHD medication. (4) Bilateral corneal abrasions Continual ophthalmic solution at home dose. (5) Cellulitis of arm Complete course of Keflex. Monitor wounds. (6) Nicotine abuse Offer nicotine replacement and smoking cessation counseling. (7) Hypokalemia Monitor oral intake, and recheck basic metabolic panel tomorrow. Discharge / Aftercare Planning Primary Care Physician: Name: CODI Therapist: Name: BRIT Restaurant Front Manager: Name: None Visit Code E&M Code: 60285 Inventory Assets Strengths: "Supportive, driven person, very passionate. Risk Factors Assessment : Yes /single/: Yes Higher / Fall in social status: No Health problems: Yes (she believes she has parasite infestation) Mental Health Diagnoses: Yes Substance use disorders: No Previous attempt: No Family history of suicide: Yes (uncle may have committed suicide, details unclear) Previous psychiatric stay: No Hopelessness: No Smoker: Yes Protective Factors Assessment Buddhism beliefs: Yes : No Responsible for young children: No Employed: Yes Stable relationships: No Supportive family: No Good rapport with provider: Yes Data Vital Signs Last 24 Hrs: Date Time Temp Pulse Resp B/P (MAP) Pulse Ox O2 Delivery O2 Flow Rate FiO2 12/20/16 06:55 36.4 76 16 104/70 101 108/74 Meds Administered Last 24 Hrs: Meds Administered (Past 24Hrs) Medications (Trade) Dose Ordered Sig/Anita Route Start Time Stop Time Status Last Admin Dose Admin Potassium Chloride (Klor-Con M10) 40 meq NOW STAT PO 12/18/16 20:33 12/18/16 20:34 DC 12/18/16 20:43 40 MEQ Acetaminophen (Tylenol Tab) 650 mg Q4H PRN PO 12/18/16 21:30 01/17/17 21:29 12/19/16 22:24 650 MG Hydroxyzine HCl (Vistaril Tab) 50 mg HSZ PRN PO 12/18/16 21:30 01/17/17 21:29 12/19/16 23:49 50 MG Cephalexin Monohydrate (Keflex Cap) 500 mg TID PO 12/19/16 09:00 12/29/16 08:59 12/20/16 09:22 500 MG Ciprofloxacin HCl (Ciprofloxacin 0.3% Op Soln) 2 drops QID OPB 12/19/16 09:00 12/29/16 08:59 12/19/16 21:07 2 DROPS Lorazepam (Ativan Tab) 0.5 mg BID PRN PO 12/18/16 21:30 12/19/16 12:27 DC 12/19/16 01:11 0.5 MG Escitalopram Oxalate (Lexapro Tab) 10 mg HS PO 12/19/16 22:00 01/18/17 21:59 12/19/16 21:07 10 MG Risperidone (Risperdal M Tab) 0.5 mg Q4 PRN PO 12/19/16 13:00 01/18/17 12:59 12/19/16 21:07 0.5 MG Lorazepam (Ativan Tab) 1 mg BID PRN PO 12/19/16 13:00 01/18/17 12:59 12/19/16 21:07 1 MG Lab Results Last 24 Hrs: Last 24 Hours Test 12/20/16 07:11 12/20/16 08:26 Sodium Level 143 mmol/L Potassium Level mmol/L 3.5 mmol/L Chloride Level 110 mmol/L Carbon Dioxide Level 24 mmol/L Anion Gap 9.0 mmol/L Blood Urea Nitrogen 5 mg/dl Creatinine 0.66 mg/dl Est Creatinine Clear Calc Drug Dose 136.2 ml/min Estimated GFR () 144.3 Estimated GFR (Non- 124.5 BUN/Creatinine Ratio 7.3 Random Glucose 82 mg/dl Calcium Level 8.4 mg/dl Problem Qualifiers (1) Psychosis: Psychosis type: delusional disorder Qualified Codes: F22 - Delusional disorders
[2016-12-20] MEDS: LORAZEPAM 1 MG TAB PO PRN ×2 (11:50→20:23)
[2016-12-20] MEDS ORDERED: BENZTROPINE MESYLATE 0.5 MG TAB PO PRN (16:00)
[2016-12-20] MEDS: RISPERIDONE ODT 1MG PO SCH (21:06)
[2016-12-20] MEDS: ESCITALOPRAM OXALATE 10 MG TAB PO SCH (21:06)
[2016-12-20] MEDS: ACETAMINOPHEN 325 MG TAB PO PRN (22:06)
[2016-12-20] MEDS: hydrOXYzine HCL 25 MG TAB PO PRN (22:06)
[2016-12-21 06:57] VITALS: BP_SYST 104; BP_SYST 106; BP_DIAS 70; BP_DIAS 71; PULSE 73; PULSE 93; TEMP 36.5
[2016-12-21] MEDS: [UNRECOGNIZED DRUG - OTHER] SCH ×3 (08:00→16:00)
[2016-12-21 08:59] LABS: POTASSIUM 3.5 mmol/L (3.5-5.1)
[2016-12-21] MEDS: NICOTINE 14 MG/24 HR TDSY TD SCH (08:59)
[2016-12-21] MEDS: CEPHALEXIN MONOHYDRATE 500 MG CAP PO SCH ×3 (08:59→22:14)
[2016-12-21] MEDS: CIPROFLOXACIN HCL 0.3% OP SOLN 2.5 ML BTL OPB SCH ×4 (09:00→22:00)
[2016-12-21] MEDS: LORAZEPAM 1 MG TAB PO PRN ×2 (12:42→22:15)
--- NOTE | 2016-12-21 13:03 | Psychiatric Progress Notes ---
Progress Note Date of Service Dec 21, 2016. Interval History Sushila Funes, who prefers Cheryl, is a 21-year-old female admitted on . She currently lives in [place], is a [employer] student, and has a history of PTSD, ADHD, and anxiety. She presented with psychosis (delusions of parasites ) and anxiety, after 4 visits to the ER in the past week for concerns for infestation. She was admitted voluntarily, but there is a 302 petition. She immediately submitted her 72 hour notice to withdraw from treatment. Chief Complaint "My medication is making me sleep too much". Subjective Patient was seen & assessed interval progress reviewed with Treatment Team. Patient reports that she is no longer experiencing sensation of bugs crawling on her skin. She continues to direct questions towards getting started back on her Adderall and we discussed role stimulant medications may have with psychosis and anxiety. She rescinded 72 hour notice and is more agreeable towards staying in hospital as her psychosis clears. Side effect from Risperdal includes sense of oversedation. Review of Systems Psych: denies symptoms other than stated above Constitutional: denied Cardiovascular: denied GI: denied Neurologic: denied Remainder of 10 body systems also reviewed and denied other than noted above. Sleep Information Total Hours of Sleep: 7.25 Meal Information Percent of Breakfast Consumed: 100 Percent of Lunch Consumed: 100 Percent of Dinner Consumed: 100 Mental Status Exam During interview pt is: alert and oriented, cooperative Appearance: appropriately dressed, appropriately groomed, appeared stated age Eye contact is: fair Motor behavior is: steady gait & station Speech: normal in rate, rhythm & volume Affect: constricted Mood is: anxious Thought process: circumstantial Thought content: paranoid, delusions Suicidal thought are: denied Homicidal thoughts are: denied Hallucinations: denies auditory, denies visual Cognition: language grossly intact, other (concentration impaired) Intelligence estimated to be: consistent with level of education Insight: impaired Judgement: impaired Impression 21-year-old single [employer] student with a history of PTSD, ADHD, and anxiety who 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 She has very limited insight, and has been seen by her PCP, urgent care, and the emergency room many times in the past couple of weeks for these concerns. She requires inpatient treatment as her symptoms are severe, causing her to be unable to function, as she has not been able to focus in school or provide for her own basic needs. Her dorm room is in disarray, she has not been eating and has lost a significant amount of weight, and is hypokalemic. She has also caused injury to herself by excessive scratching, resulting in cellulitis and the need for antibiotic treatment. She is at high risk for harm to herself if discharged prematurely, and although she is here on a voluntary admission, has requested discharge, and may require involuntary commitment. Plan (1) Psychosis on admission--Differential includes primary thought disorder (delusional disorder), substance induced psychosis (prescription stimulants), psychotic mood disorder, and psychosis due to general medical condition. There is little to support a diagnosis of mood disorder or medical condition, and she has been on the same dose of Adderall for over a year, making substance induced psychosis less likely. We will hold the stimulants, due to concerns that it may be contributed to symptoms could certainly been worsening anxiety as well. 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 I will start by ordering risperidone 0.5 mg when necessary for psychosis. Her PCP indicates that he will be visiting her tonight and will encourage her to accept treatment. It may also be helpful to involve [facility] life as her significant concerns about her ability to function independently at this time. - She will require referral for outpatient psychiatric follow-up. - Encourage family meeting, although at this time, she is unwilling to involve her parents. - She has submitted a 72 hour notice requesting to withdraw from treatment. There is a backup 302 petition, and after discussing her case with her PCP and getting collateral information from [facility], it appears there are significant risks in discharging her prematurely. We reviewed the recommendations to stay in the hospital until her symptoms are well-controlled and she has a good outpatient plan, and the possibility of an involuntary commitment if she is unwilling to do so. 12/20--suspect induced by Adderall. Based on review of admission, delusions appear to be resolving. Thought disorganization continues. Risks/benefits/ alternatives reviewed re: Risperdal trial. Discussion included but was not limited to risks of TD and metabolic abnormalities. Agreeable to 1 mg Risperdal M tab at hs. Will order fasting metabolic panel in am. 12/21 - Delusions about infestation with bugs and thought disorganization resolving. Sedation side effect from Risperdal so will not increase dose at this time. Awaiting results of metabolic panel. (2) Anxiety Patient meets criteria for generalized anxiety disorder and PTSD. She is willing for a trial of an SSRI antidepressant to target these symptoms. We discussed escitalopram, and we'll start 10 mg daily at bedtime tonight. Titrate as tolerated. Refer for outpatient therapy. (3) ADHD (attention deficit hyperactivity disorder) Hold stimulant as above. Consider exploration of other non-stimulant options for treatment of ADHD. Hopefully attention will improve once anxiety is under better control. 12/20--unable to comment on accuracy of diagnosis given resolving psychosis. She does note that Strattera was not helpful in the past. Reviewed that the only other non-stimulant option (guanfacine) is not available here on formulary and that I would encourage waiting until she is more stable to resume ADHD medication. (4) Bilateral corneal abrasions Continual ophthalmic solution at home dose. (5) Cellulitis of arm Complete course of Keflex. Monitor wounds. (6) Nicotine abuse Offer nicotine replacement and smoking cessation counseling. (7) Hypokalemia Monitor oral intake, and recheck basic metabolic panel tomorrow. Discharge / Aftercare Planning Primary Care Physician: Name: CODI Therapist: Name: BRIT Nail Tech: Name: None Visit Code E&M Code: 32407 Inventory Assets Strengths: "Supportive, driven person, very passionate. Risk Factors Assessment : Yes /single/: Yes Higher / Fall in social status: No Health problems: Yes (she believes she has parasite infestation) Mental Health Diagnoses: Yes Substance use disorders: No Previous attempt: No Family history of suicide: Yes (uncle may have committed suicide, details unclear) Previous psychiatric stay: No Hopelessness: No Smoker: Yes Protective Factors Assessment Yarsani beliefs: Yes : No Responsible for young children: No Employed: Yes Stable relationships: No Supportive family: No Good rapport with provider: Yes Data Vital Signs Last 24 Hrs: Date Time Temp Pulse Resp B/P (MAP) Pulse Ox O2 Delivery O2 Flow Rate FiO2 12/21/16 06:57 36.5 73 16 104/70 93 106/71 Meds Administered Last 24 Hrs: Meds Administered (Past 24Hrs) Medications (Trade) Dose Ordered Sig/Anita Route Start Time Stop Time Status Last Admin Dose Admin Escitalopram Oxalate (Lexapro Tab) 10 mg HS PO 12/19/16 22:00 01/18/17 21:59 12/20/16 21:06 10 MG Risperidone (Risperdal M Tab) 0.5 mg Q4 PRN PO 12/19/16 13:00 01/18/17 12:59 12/19/16 21:07 0.5 MG Lorazepam (Ativan Tab) 1 mg BID PRN PO 12/19/16 13:00 01/18/17 12:59 12/21/16 12:42 1 MG Risperidone (Risperdal M Tab) 1 mg HS PO 12/20/16 22:00 01/19/17 21:59 12/20/16 21:06 1 MG Lab Results Last 24 Hrs: Last 24 Hours Test 12/21/16 08:15 Sodium Level 144 mmol/L Potassium Level 3.5 mmol/L Chloride Level 108 mmol/L Carbon Dioxide Level 30 mmol/L Anion Gap 6.0 mmol/L Fasting Glucose 77 mg/dl Triglycerides Level 54 mg/dl Cholesterol Level 132 mg/dl HDL Cholesterol 65 mg/dl LDL Cholesterol, Calculated 56 mg/dl VLDL Cholesterol, Calculated 11 mg/dl Cholesterol/HDL Ratio 2.0 Problem Qualifiers (1) Psychosis: Psychosis type: delusional disorder Qualified Codes: F22 - Delusional disorders
[2016-12-21] MEDS: ESCITALOPRAM OXALATE 10 MG TAB PO SCH (22:14)
[2016-12-21] MEDS: RISPERIDONE ODT 1MG PO SCH (22:14)
[2016-12-22 06:50] VITALS: BP_SYST 107; BP_SYST 112; BP_DIAS 72; BP_DIAS 76; PULSE 103; PULSE 80; TEMP 36.9
[2016-12-22] MEDS: [UNRECOGNIZED DRUG - OTHER] SCH ×4 (08:00→23:25)
[2016-12-22] MEDS: CEPHALEXIN MONOHYDRATE 500 MG CAP PO SCH ×3 (08:41→22:15)
[2016-12-22] MEDS: CIPROFLOXACIN HCL 0.3% OP SOLN 2.5 ML BTL OPB SCH ×4 (08:42→21:35)
[2016-12-22] MEDS: NICOTINE 14 MG/24 HR TDSY TD SCH (08:43)
--- NOTE | 2016-12-22 11:43 | Psychiatric Progress Notes ---
Progress Note Date of Service Dec 22, 2016. Interval History Sushila Funes, who prefers Cheryl, is a 21-year-old female admitted on . She currently lives in [place], is a [employer] student, and has a history of PTSD, ADHD, and anxiety. She presented with psychosis (delusions of parasites ) and anxiety, after 4 visits to the ER in the past week for concerns for infestation. She was admitted voluntarily, but there is a 302 petition. She immediately submitted her 72 hour notice to withdraw from treatment. Chief Complaint "I need medication for my ADHD". Subjective Patient was seen & assessed interval progress reviewed with Treatment Team. Patient reports that she continues to feel sedated as side effect from Risperdal but no longer reports sense of bugs crawling on her or visual hallucinations. She continues to feel anxious and has been isolating from her peers in her room. Poor concentration and focus and restless and continues to feel anxious. She has been taking PRN doses of Lorazepam twice daily for anxiety. Review of Systems Psych: denies symptoms other than stated above Constitutional: tired Cardiovascular: denied GI: denied Neurologic: denied Remainder of 10 body systems also reviewed and denied other than noted above. Sleep Information Total Hours of Sleep: 6.00 Meal Information Percent of Breakfast Consumed: 0 Percent of Lunch Consumed: 100 Percent of Dinner Consumed: 100 Mental Status Exam During interview pt is: alert and oriented, cooperative Appearance: appropriately dressed, appropriately groomed, appeared stated age Eye contact is: fair Motor behavior is: steady gait & station Speech: normal in rate, rhythm & volume Affect: constricted Mood is: anxious Thought process: circumstantial Thought content: paranoid, delusions Suicidal thought are: denied Homicidal thoughts are: denied Hallucinations: denies auditory, denies visual Cognition: language grossly intact, other (concentration impaired) Intelligence estimated to be: consistent with level of education Insight: impaired Judgement: impaired Impression 21-year-old single [employer] student with a history of PTSD, ADHD, and anxiety who 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 She has very limited insight, and has been seen by her PCP, urgent care, and the emergency room many times in the past couple of weeks for these concerns. She requires inpatient treatment as her symptoms are severe, causing her to be unable to function, as she has not been able to focus in school or provide for her own basic needs. Her dorm room is in disarray, she has not been eating and has lost a significant amount of weight, and is hypokalemic. She has also caused injury to herself by excessive scratching, resulting in cellulitis and the need for antibiotic treatment. She is at high risk for harm to herself if discharged prematurely, and although she is here on a voluntary admission, has requested discharge, and may require involuntary commitment. Plan (1) Psychosis on admission--Differential includes primary thought disorder (delusional disorder), substance induced psychosis (prescription stimulants), psychotic mood disorder, and psychosis due to general medical condition. There is little to support a diagnosis of mood disorder or medical condition, and she has been on the same dose of Adderall for over a year, making substance induced psychosis less likely. We will hold the stimulants, due to concerns that it may be contributed to symptoms could certainly been worsening anxiety as well. 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 I will start by ordering risperidone 0.5 mg when necessary for psychosis. Her PCP indicates that he will be visiting her tonight and will encourage her to accept treatment. It may also be helpful to involve [facility] as her significant concerns about her ability to function independently at this time. - She will require referral for outpatient psychiatric follow-up. - Encourage family meeting, although at this time, she is unwilling to involve her parents. - She has submitted a 72 hour notice requesting to withdraw from treatment. There is a backup 302 petition, and after discussing her case with her PCP and getting collateral information from [facility], it appears there are significant risks in discharging her prematurely. We reviewed the recommendations to stay in the hospital until her symptoms are well-controlled and she has a good outpatient plan, and the possibility of an involuntary commitment if she is unwilling to do so. 12/20--suspect induced by Adderall. Based on review of admission, delusions appear to be resolving. Thought disorganization continues. Risks/benefits/ alternatives reviewed re: Risperdal trial. Discussion included but was not limited to risks of TD and metabolic abnormalities. Agreeable to 1 mg Risperdal M tab at hs. Will order fasting metabolic panel in am. 12/21 - Delusions about infestation with bugs and thought disorganization resolving. Sedation side effect from Risperdal so will not increase dose at this time. Awaiting results of metabolic panel. 12/22 - Psychosis gradually resolving. Metabolic panel results normal with fasting glucose 77 and cholesterol 132 and Triglycerides 54. (2) Anxiety Patient meets criteria for generalized anxiety disorder and PTSD. She is willing for a trial of an SSRI antidepressant to target these symptoms. We discussed escitalopram, and we'll start 10 mg daily at bedtime tonight. Titrate as tolerated. Refer for outpatient therapy. (3) ADHD (attention deficit hyperactivity disorder) Hold stimulant as above. Consider exploration of other non-stimulant options for treatment of ADHD. Hopefully attention will improve once anxiety is under better control. 12/20--unable to comment on accuracy of diagnosis given resolving psychosis. She does note that Strattera was not helpful in the past. Reviewed that the only other non-stimulant option (guanfacine) is not available here on formulary and that I would encourage waiting until she is more stable to resume ADHD medication. 12/22 - patient remains quite anxious and reviewed with patient that her concentration problems and restlessness may be related to anxiety but she remains very focussed on getting back on a stimulant and reviewed with her risk of stimulant triggering psychosis and encouraged her to limit use of PRN Lorazepam to improve cognitive functioning. (4) Bilateral corneal abrasions Continual ophthalmic solution at home dose. (5) Cellulitis of arm Complete course of Keflex. Monitor wounds. (6) Nicotine abuse Offer nicotine replacement and smoking cessation counseling. (7) Hypokalemia Monitor oral intake, and recheck basic metabolic panel tomorrow. 12/22 - Potassium results improved with result of 3.5. Reviewed with patient her history of restrictive eating pattern in middle and high school but she denies this for the past 6 years and denies any purging activity or laxative as a possible source of low potassium. Discharge / Aftercare Planning Primary Care Physician: Name: Mimi Therapist: Name: BRIT Infection Prevention Specialist: Name: None Visit Code E&M Code: 95702 Inventory Assets Strengths: "Supportive, driven person, very passionate. Risk Factors Assessment : Yes /single/: Yes Higher / Fall in social status: No Health problems: Yes (she believes she has parasite infestation) Mental Health Diagnoses: Yes Substance use disorders: No Previous attempt: No Family history of suicide: Yes (uncle may have committed suicide, details unclear) Previous psychiatric stay: No Hopelessness: No Smoker: Yes Protective Factors Assessment Zoroastrianism beliefs: Yes : No Responsible for young children: No Employed: Yes Stable relationships: No Supportive family: No Good rapport with provider: Yes Data Vital Signs Last 24 Hrs: Date Time Temp Pulse Resp B/P (MAP) Pulse Ox O2 Delivery O2 Flow Rate FiO2 12/22/16 06:50 36.9 80 16 107/72 103 112/76 Meds Administered Last 24 Hrs: Meds Administered (Past 24Hrs) Medications (Trade) Dose Ordered Sig/Anita Route Start Time Stop Time Status Last Admin Dose Admin Risperidone (Risperdal M Tab) 1 mg HS PO 12/20/16 22:00 01/19/17 21:59 12/21/16 22:14 1 MG Problem Qualifiers (1) Psychosis: Psychosis type: delusional disorder Qualified Codes: F22 - Delusional disorders
[2016-12-22] MEDS: LORAZEPAM 1 MG TAB PO PRN ×2 (12:45→22:16)
[2016-12-22] MEDS: ESCITALOPRAM OXALATE 10 MG TAB PO SCH (22:15)
[2016-12-22] MEDS: RISPERIDONE ODT 1MG PO SCH (22:16)
[2016-12-22] MEDS: hydrOXYzine HCL 25 MG TAB PO PRN (23:23)
[2016-12-23 06:57] VITALS: BP_SYST 105; BP_SYST 107; BP_DIAS 69; BP_DIAS 72; PULSE 106; PULSE 78; TEMP 36.7
[2016-12-23] MEDS: NICOTINE 14 MG/24 HR TDSY TD SCH (08:51)
[2016-12-23] MEDS: CIPROFLOXACIN HCL 0.3% OP SOLN 2.5 ML BTL OPB SCH ×4 (09:00→21:55)
[2016-12-23] MEDS: CEPHALEXIN MONOHYDRATE 500 MG CAP PO SCH ×3 (09:18→21:47)
--- NOTE | 2016-12-23 12:12 | Psychiatric Progress Notes ---
Progress Note Date of Service Dec 23, 2016. Interval History Sushila Funes, who prefers Cheryl, is a 21-year-old female admitted on . She currently lives in [place], is a [employer] student, and has a history of PTSD, ADHD, and anxiety. She presented with psychosis (delusions of parasites ) and anxiety, after 4 visits to the ER in the past week for concerns for infestation. She was admitted voluntarily, but there is a 302 petition. She immediately submitted her 72 hour notice to withdraw from treatment, but later rescinded it. Chief Complaint "Okay, just really sleepy". Subjective Patient was seen & assessed interval progress reviewed with Treatment Team. Staff report she is taking medications as prescribed, and is requesting Ativan twice daily. She is taking medications as prescribed and is eating well, but spent most of the day in bed sleeping, missing groups. She has not been reporting visual or tactile hallucinations of bugs here in the hospital, but continues to demonstrate poor insight into her symptoms, telling staff that she is hoping to leave soon so she can return to school. She is continued to refuse contact with her family. She was seen in her room today, where she was still in bed sleeping mid day. She states that she is very tired, which she attributes to medication. She says mood is "fine, I don't really have that base anxiety I usually have, I'm just anxious because it's hard for me to focus. It's hard for me to sit down and do something without losing focus." She does not feel she needs to be here anymore, saying she is fine to return to school and wants to get back to her classes. She denies seeing or feeling any bugs since she was admitted to the hospital, saying "I think a lot of it was just anxiety and not real." She thinks she will be fine returning to her dorm room because she says the school has moved everything out of her previous room and she will be going to a different room. She denies any concerns with making up the course work she missed last semester or her summer course work, although she reported being behind in her class already. We discussed concerns with medically clearing her to return to school, and that we would recommend she take some time to recover before returning to classes. She was dismissive of these recommendations, stating that she will be "fine, I motivated, I can't go home, it'll be even worse." She states she still has not talked to her family or any friends since admission, saying "I don't need to." She then asked again if she could be put back on stimulants as she is worried she will be able to focus on her schoolwork. Sleep Information Total Hours of Sleep: 6.50 Meal Information Percent of Breakfast Consumed: 75 Percent of Lunch Consumed: 75 Percent of Dinner Consumed: 100 Mental Status Exam During interview pt is: alert and oriented, guarded, other (awoken from sleep) Appearance: appropriately dressed, appropriately groomed, disheveled, appeared stated age Eye contact is: fair Motor behavior is: no abnormal motor movements Speech: normal in rate, rhythm & volume Affect: constricted (tired, incongruent with stated mood) Mood is: other ("fine") Thought process: perseveration (on returning to school) Thought content: other (minimizes symptoms and demonstrates poor insight) Suicidal thought are: denied Homicidal thoughts are: denied Hallucinations: denies auditory, denies visual Cognition: language grossly intact, other (concentration impaired) Intelligence estimated to be: consistent with level of education Insight: impaired Judgement: impaired Impression 21-year-old single [employer] student with a history of PTSD, ADHD, and anxiety who 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 She has very limited insight, and has been seen by her PCP, urgent care, and the emergency room many times in the past couple of weeks for these concerns. She requires inpatient treatment as her symptoms are severe, causing her to be unable to function, as she has not been able to focus in school or provide for her own basic needs. Her dorm room is in disarray, she has not been eating and has lost a significant amount of weight, and is hypokalemic. She has also caused injury to herself by excessive scratching, resulting in cellulitis of her arm and corneal abrasions on her eye, and the need for antibiotic treatment and eyedrops. She has been started on escitalopram for anxiety and risperidone for psychosis, and although Adderall has been discontinued, she continues to request it on a regular basis, and demonstrates poor insight into the reasons that it is contraindicated. She will not allow involvement of her family or friends, and has no outpatient mental health providers. She requires ongoing inpatient treatment as she is at high risk for harm to herself if discharged prematurely. Plan (1) Psychosis on admission--Differential includes primary thought disorder (delusional disorder), substance induced psychosis (prescription stimulants), psychotic mood disorder, and psychosis due to general medical condition. There is little to support a diagnosis of mood disorder or medical condition, and she has been on the same dose of Adderall for over a year, making substance induced psychosis less likely. We will hold the stimulants, due to concerns that it may be contributed to symptoms could certainly been worsening anxiety as well. 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 I will start by ordering risperidone 0.5 mg when necessary for psychosis. Her PCP indicates that he will be visiting her tonight and will encourage her to accept treatment. It may also be helpful to involve [facility] as her significant concerns about her ability to function independently at this time. - She will require referral for outpatient psychiatric follow-up. - Encourage family meeting, although at this time, she is unwilling to involve her parents. - She has submitted a 72 hour notice requesting to withdraw from treatment. There is a backup 302 petition, and after discussing her case with her PCP and getting collateral information from [facility], it appears there are significant risks in discharging her prematurely. We reviewed the recommendations to stay in the hospital until her symptoms are well-controlled and she has a good outpatient plan, and the possibility of an involuntary commitment if she is unwilling to do so. 12/20--suspect induced by Adderall. Based on review of admission, delusions appear to be resolving. Thought disorganization continues. Risks/benefits/ alternatives reviewed re: Risperdal trial. Discussion included but was not limited to risks of TD and metabolic abnormalities. Agreeable to 1 mg Risperdal M tab at hs. Will order fasting metabolic panel in am. 12/21 - Delusions about infestation with bugs and thought disorganization resolving. Sedation side effect from Risperdal so will not increase dose at this time. Awaiting results of metabolic panel. 12/22 - Psychosis gradually resolving. Metabolic panel results normal with fasting glucose 77 and cholesterol 132 and Triglycerides 54. 12/23 - psychosis continues to improve, but insight into the need to allow time for recovery is lacking. Continue risperidone 1 mg daily at bedtime. Advised patient that we would recommend she withdraw from school and allow time for stabilization before returning to class, as she is already quite behind, has been ill and unable to function for weeks, so it will likely take weeks to months for a full recovery, and the additional stress of trying to return to school to early may impede recovery or cause a relapse of her psychosis. She demonstrates poor insight and indicates she plans to return to school immediately, denying any concerns. Social work is contacting [facility] to review her options. The patient continues to refuse to sign a release of information for friends or family, but was advised that is part of her discharge planning, we would like to involve her support network. (2) Anxiety Patient meets criteria for generalized anxiety disorder and PTSD. She is willing for a trial of an SSRI antidepressant to target these symptoms. We discussed escitalopram, and we'll start 10 mg daily at bedtime tonight. Titrate as tolerated. Refer for outpatient therapy. 12/22 - escitalopram increased to 15 mg daily at bedtime. 12/23 - patient is sleeping excessively and reporting oversedation, while also requesting Ativan twice a day. We'll decrease the dose to 0.5 mg twice a day when necessary, with recommendations that it be tapered off either prior to discharge, or shortly thereafter. There is a concern for her misuse of prescription medications, as evidenced by her recent problems with Adderall, which she continued to take even after being advised by both the ER and her prescribing physician to discontinue the medication. There is also the risk of disinhibition with benzodiazepines. (3) ADHD (attention deficit hyperactivity disorder) Hold stimulant as above. Consider exploration of other non-stimulant options for treatment of ADHD. Hopefully attention will improve once anxiety is under better control. 12/20--unable to comment on accuracy of diagnosis given resolving psychosis. She does note that Strattera was not helpful in the past. Reviewed that the only other non-stimulant option (guanfacine) is not available here on formulary and that I would encourage waiting until she is more stable to resume ADHD medication. 12/22 - patient remains quite anxious and reviewed with patient that her concentration problems and restlessness may be related to anxiety but she remains very focussed on getting back on a stimulant and reviewed with her risk of stimulant triggering psychosis and encouraged her to limit use of PRN Lorazepam to improve cognitive functioning. (4) Bilateral corneal abrasions Continual ophthalmic solution at home dose. (5) Cellulitis of arm Complete course of Keflex. Monitor wounds. (6) Nicotine abuse Offer nicotine replacement and smoking cessation counseling. (7) Hypokalemia Monitor oral intake, and recheck basic metabolic panel tomorrow. 12/22 - Potassium results improved with result of 3.5. Reviewed with patient her history of restrictive eating pattern in middle and high school but she denies this for the past 6 years and denies any purging activity or laxative as a possible source of low potassium. Discharge / Aftercare Planning Primary Care Physician: Name: CODI Therapist: Name: BRIT Manager Protein: Name: None Visit Code E&M Code: 86792 Inventory Assets Strengths: "Supportive, driven person, very passionate. Risk Factors Assessment : Yes /single/: Yes Higher / Fall in social status: No Health problems: Yes (she believes she has parasite infestation) Mental Health Diagnoses: Yes Substance use disorders: No Previous attempt: No Family history of suicide: Yes (uncle may have committed suicide, details unclear) Previous psychiatric stay: No Hopelessness: No Smoker: Yes Protective Factors Assessment Hoahaoism beliefs: Yes : No Responsible for young children: No Employed: Yes Stable relationships: No Supportive family: No Good rapport with provider: Yes Data Vital Signs Last 24 Hrs: Date Time Temp Pulse Resp B/P (MAP) Pulse Ox O2 Delivery O2 Flow Rate FiO2 12/23/16 06:57 36.7 78 16 107/72 106 105/69 Meds Administered Last 24 Hrs: Meds Administered (Past 24Hrs) Medications (Trade) Dose Ordered Sig/Anita Route Start Time Stop Time Status Last Admin Dose Admin Escitalopram Oxalate (Lexapro Tab) 15 mg HS PO 12/22/16 22:00 01/18/17 21:59 12/22/16 22:15 15 MG Problem Qualifiers (1) Psychosis: Psychosis type: delusional disorder Qualified Codes: F22 - Delusional disorders
[2016-12-23] MEDS ORDERED: LORAZEPAM 1 MG TAB PO PRN (12:15)
[2016-12-23] MEDS ORDERED: LORAZEPAM 0.5 MG TAB PO PRN (13:00)
[2016-12-23] MEDS: ESCITALOPRAM OXALATE 10 MG TAB PO SCH (21:48)
[2016-12-23] MEDS: RISPERIDONE ODT 1MG PO SCH (21:48)
[2016-12-23] MEDS: hydrOXYzine HCL 25 MG TAB PO PRN ×2 (21:56→22:35)
[2016-12-24 06:58] VITALS: BP_SYST 113; BP_SYST 116; BP_DIAS 74; BP_DIAS 75; PULSE 87; PULSE 89; TEMP 36.8
[2016-12-24] MEDS: CEPHALEXIN MONOHYDRATE 500 MG CAP PO SCH ×3 (08:45→21:26)
[2016-12-24] MEDS: CIPROFLOXACIN HCL 0.3% OP SOLN 2.5 ML BTL OPB SCH ×4 (08:51→21:26)
--- NOTE | 2016-12-24 15:02 | Psychiatric Progress Notes ---
Progress Note Date of Service Dec 24, 2016. Interval History Sushila Funes, who prefers Cheryl, is a 21-year-old female admitted on . She currently lives in [place], is a [employer] student, and has a history of PTSD, ADHD, and anxiety. She presented with psychosis (delusions of parasites ) and anxiety, after 4 visits to the ER in the past week for concerns for infestation. She was admitted voluntarily, but there is a 302 petition. She immediately submitted her 72 hour notice to withdraw from treatment, but later rescinded it. Chief Complaint "I'm glad my parents know". Subjective Patient was seen & assessed interval progress reviewed with Treatment Team. [employer] notified parents that patient was hospitalized, parents were educated re: [facility] and did speak with her directly last night. They asked appropriate questions about care and aftercare in family meeting and were able to work on a more realistic plan for her to return home to recover during family meeting which MD participated in as well. She continues to deny seeing bugs or preoccupations about contamination and is able to verbalize that she knows she cannot resume stimulant medication at this time. There was clearly less delay in response and she appeared quite bright. She denies side effects of Risperdal. Review of Systems Psych: denies symptoms other than stated above Constitutional: denied Cardiovascular: denied GI: denied Neurologic: denied Remainder of 10 body systems also reviewed and denied other than noted above. Sleep Information Total Hours of Sleep: 7.25 Meal Information Percent of Breakfast Consumed: 70 Percent of Lunch Consumed: 75 Percent of Dinner Consumed: 90 Mental Status Exam During interview pt is: alert and oriented Appearance: appropriately dressed, appropriately groomed Eye contact is: fair Motor behavior is: no abnormal motor movements (was able to suppress crossing/ uncrossing legs, denies akathisia) Speech: normal in rate, rhythm & volume Affect: euthymic Mood is: other ("much better thanks") Thought process: clear, coherent Thought content: reality based without delusions Suicidal thought are: denied Homicidal thoughts are: denied Hallucinations: denies auditory, denies visual Cognition: language grossly intact, other (concentration improved) Intelligence estimated to be: consistent with level of education Insight: limited Judgement: limited Impression 21-year-old single [employer] student with a history of PTSD, ADHD, and anxiety who 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 She has very limited insight, and has been seen by her PCP, urgent care, and the emergency room many times in the past couple of weeks for these concerns. She requires inpatient treatment as her symptoms are severe, causing her to be unable to function, as she has not been able to focus in school or provide for her own basic needs. Her dorm room is in disarray, she has not been eating and has lost a significant amount of weight, and is hypokalemic. She has also caused injury to herself by excessive scratching, resulting in cellulitis of her arm and corneal abrasions on her eye, and the need for antibiotic treatment and eyedrops. Plan (1) Psychosis on admission--Differential includes primary thought disorder (delusional disorder), substance induced psychosis (prescription stimulants), psychotic mood disorder, and psychosis due to general medical condition. There is little to support a diagnosis of mood disorder or medical condition, and she has been on the same dose of Adderall for over a year, making substance induced psychosis less likely. We will hold the stimulants, due to concerns that it may be contributed to symptoms could certainly been worsening anxiety as well. 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 I will start by ordering risperidone 0.5 mg when necessary for psychosis. Her PCP indicates that he will be visiting her tonight and will encourage her to accept treatment. It may also be helpful to involve [facility] life as her significant concerns about her ability to function independently at this time. - She will require referral for outpatient psychiatric follow-up. - Encourage family meeting, although at this time, she is unwilling to involve her parents. - She has submitted a 72 hour notice requesting to withdraw from treatment. There is a backup 302 petition, and after discussing her case with her PCP and getting collateral information from [facility], it appears there are significant risks in discharging her prematurely. We reviewed the recommendations to stay in the hospital until her symptoms are well-controlled and she has a good outpatient plan, and the possibility of an involuntary commitment if she is unwilling to do so. 12/20--suspect induced by Adderall. Based on review of admission, delusions appear to be resolving. Thought disorganization continues. Risks/benefits/ alternatives reviewed re: Risperdal trial. Discussion included but was not limited to risks of TD and metabolic abnormalities. Agreeable to 1 mg Risperdal M tab at hs. Will order fasting metabolic panel in am. 12/21 - Delusions about infestation with bugs and thought disorganization resolving. Sedation side effect from Risperdal so will not increase dose at this time. Awaiting results of metabolic panel. 12/22 - Psychosis gradually resolving. Metabolic panel results normal with fasting glucose 77 and cholesterol 132 and Triglycerides 54. 12/23 - psychosis continues to improve, but insight into the need to allow time for recovery is lacking. Continue risperidone 1 mg daily at bedtime. Advised patient that we would recommend she withdraw from school and allow time for stabilization before returning to class, as she is already quite behind, has been ill and unable to function for weeks, so it will likely take weeks to months for a full recovery, and the additional stress of trying to return to school to early may impede recovery or cause a relapse of her psychosis. She demonstrates poor insight and indicates she plans to return to school immediately, denying any concerns. Social work is contacting [employer] to review her options. The patient continues to refuse to sign a release of information for friends or family, but was advised that is part of her discharge planning, we would like to involve her support network. 12/24 --improved insight, family now involved in care and treatment planning. (2) Anxiety Patient meets criteria for generalized anxiety disorder and PTSD. She is willing for a trial of an SSRI antidepressant to target these symptoms. We discussed escitalopram, and we'll start 10 mg daily at bedtime tonight. Titrate as tolerated. Refer for outpatient therapy. 12/22 - escitalopram increased to 15 mg daily at bedtime. 12/23 - patient is sleeping excessively and reporting oversedation, while also requesting Ativan twice a day. We'll decrease the dose to 0.5 mg twice a day when necessary, with recommendations that it be tapered off either prior to discharge, or shortly thereafter. There is a concern for her misuse of prescription medications, as evidenced by her recent problems with Adderall, which she continued to take even after being advised by both the ER and her prescribing physician to discontinue the medication. There is also the risk of disinhibition with benzodiazepines. (3) ADHD (attention deficit hyperactivity disorder) Hold stimulant as above. Consider exploration of other non-stimulant options for treatment of ADHD. Hopefully attention will improve once anxiety is under better control. 12/20--unable to comment on accuracy of diagnosis given resolving psychosis. She does note that Strattera was not helpful in the past. Reviewed that the only other non-stimulant option (guanfacine) is not available here on formulary and that I would encourage waiting until she is more stable to resume ADHD medication. 12/22 - patient remains quite anxious and reviewed with patient that her concentration problems and restlessness may be related to anxiety but she remains very focussed on getting back on a stimulant and reviewed with her risk of stimulant triggering psychosis and encouraged her to limit use of PRN Lorazepam to improve cognitive functioning. (4) Bilateral corneal abrasions Continual ophthalmic solution at home dose. (5) Cellulitis of arm Complete course of Keflex (6) Nicotine abuse Offer nicotine replacement and smoking cessation counseling. (7) Hypokalemia Monitor oral intake, and recheck basic metabolic panel tomorrow. 12/22 - Potassium results improved with result of 3.5. Reviewed with patient her history of restrictive eating pattern in middle and high school but she denies this for the past 6 years and denies any purging activity or laxative as a possible source of low potassium. Discharge / Aftercare Planning Primary Care Physician: Name: CODI Therapist: Name: BRIT Supervisor Spinning: Name: None Visit Code E&M Code: 47927 Inventory Assets Strengths: "Supportive, driven person, very passionate. Risk Factors Assessment : Yes /single/: Yes Higher / Fall in social status: No Health problems: Yes (she believes she has parasite infestation) Mental Health Diagnoses: Yes Substance use disorders: No Previous attempt: No Family history of suicide: Yes (uncle may have committed suicide, details unclear) Previous psychiatric stay: No Hopelessness: No Smoker: Yes Protective Factors Assessment Anabaptist beliefs: Yes : No Responsible for young children: No Employed: Yes Stable relationships: No Supportive family: No Good rapport with provider: Yes Data Vital Signs Last 24 Hrs: Date Time Temp Pulse Resp B/P (MAP) Pulse Ox O2 Delivery O2 Flow Rate FiO2 12/24/16 06:58 36.8 87 16 116/75 89 113/74 Meds Administered Last 24 Hrs: Meds Administered (Past 24Hrs) Medications (Trade) Dose Ordered Sig/Anita Route Start Time Stop Time Status Last Admin Dose Admin Escitalopram Oxalate (Lexapro Tab) 15 mg HS PO 12/22/16 22:00 01/18/17 21:59 12/23/16 21:48 15 MG Problem Qualifiers (1) Psychosis: Psychosis type: delusional disorder Qualified Codes: F22 - Delusional disorders
[2016-12-24] MEDS: ESCITALOPRAM OXALATE 10 MG TAB PO SCH (21:26)
[2016-12-24] MEDS: ACETAMINOPHEN 325 MG TAB PO PRN (21:29)
[2016-12-24] MEDS: hydrOXYzine HCL 25 MG TAB PO PRN ×2 (21:30→23:06)
[2016-12-24] MEDS: RISPERIDONE ODT 1MG PO SCH (21:30)
[2016-12-25] MEDS: [UNRECOGNIZED DRUG - OTHER] SCH
[2016-12-25 07:02] VITALS: BP_SYST 103; BP_SYST 99; BP_DIAS 65; BP_DIAS 68; PULSE 66; PULSE 94; TEMP 36.6
[2016-12-25] MEDS: CEPHALEXIN MONOHYDRATE 500 MG CAP PO SCH (08:28)
[2016-12-25] MEDS: CIPROFLOXACIN HCL 0.3% OP SOLN 2.5 ML BTL OPB SCH (08:28)
[2016-12-25] MEDS ORDERED: LXP10 PO (10:04)
[2016-12-25] MEDS ORDERED: ATR25 PO (10:04)
[2016-12-25] MEDS ORDERED: RSP1 PO (10:04)
--- NOTE | 2016-12-25 10:41 | Discharge Instructions ---
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 80.6 Mean Corpuscular Hemoglobin 28.1 Mean Corpuscular Hemoglobin Concent 34.9 Platelet Count 230 Mean Platelet Volume 10.1 Neutrophils (%) (Auto) 47.5 Lymphocytes (%) (Auto) 42.8 Monocytes (%) (Auto) 7.5 Eosinophils (%) (Auto) 1.8 Basophils (%) (Auto) 0.4 Neutrophils # (Auto) 2.14 Lymphocytes # (Auto) 1.93 Monocytes # (Auto) 0.34 Eosinophils # (Auto) 0.08 Basophils # (Auto) 0.02 RDW Standard Deviation 38.4 RDW Coefficient of Variation 13.0 Immature Granulocyte % (Auto) 0.0 Immature Granulocyte # (Auto) 0.00 Blood Urea Nitrogen 6 5 Creatinine 0.83 0.66 Est Creatinine Clear Calc Drug Dose 108.8 136.2 Estimated GFR () 115.2 144.3 Estimated GFR (Non- 99.4 124.5 BUN/Creatinine Ratio 7.8 7.3 Random Glucose 87 82 Calcium Level 8.7 8.4 Total Bilirubin 0.4 Direct Bilirubin 0.1 Aspartate Amino Transferase (AST) 20 Alanine Aminotransferase (ALT) 33 Alkaline Phosphatase 60 Total Protein 6.7 Albumin 3.5 Lipase 62 Thyroid Stimulating Hormone (TSH) 1.260 Ethyl Alcohol mg/dL < 3.0 Urine Color YELLOW Urine Appearance CLOUDY Urine pH 5.5 Urine Specific Fl[place]agan 1.014 Urine Protein NEG Urine Glucose (UA) NEG Urine Ketones TRACE Urine Occult Blood TRACE Urine Nitrite NEG Urine Bilirubin NEG Urine Urobilinogen NEG Urine Leukocyte Esterase MODERATE Urine WBC (Auto) >30 Urine RBC (Auto) 5-10 Urine Hyaline Casts (Auto) 0 Urine Epithelial Cells (Auto) >30 Urine Bacteria (Auto) 1+ Urine Pathogenic Casts Urine Yeast (Auto) BUD W/ HYPHAE Urine Test NEG Sodium Level 143 Chloride Level 110 Carbon Dioxide Level 24 Anion Gap 9.0 Test 12/20/16 08:26 12/21/16 08:15 Potassium Level 3.5 3.5 Sodium Level 144 Chloride Level 108 Carbon Dioxide Level 30 Anion Gap 6.0 Fasting Glucose 77 Triglycerides Level 54 Cholesterol Level 132 HDL Cholesterol 65 LDL Cholesterol, Calculated 56 VLDL Cholesterol, Calculated 11 Cholesterol/HDL Ratio 2.0 Total Time Total Time Spent (min): Greater than 30 minutes Total Time Included: examination of the patient, discharge planning, medication reconciliation Tobacco Cessation at Discharge Smoking Status: Light Tobacco Smoker FDA approved Prescription: declined med & out pt counseling Problem Qualifiers (1) Psychosis: Psychosis type: delusional disorder Qualified Codes: F22 - Delusional disorders
[2016-12-25] MEDS ORDERED: DESTROY THIS MEDICATION ONE (13:00)
== END 2016-12-25 12:03 | disposition home or self-care (01) | DRG 897 ==
LOC: C.EDB 18:12 → C.MHU 21:24 → ENRESERV 21:54 → C.MHU 12-19 00:17
PROVIDERS: ADMIT Psychiatry & Neurology Psychiatry; ATTEND Psychiatry & Neurology Psychiatry
DX: F19.921 Other psychoactive substance use, unspecified with intoxication with delirium (principal); T43.625A Adverse effect of amphetamines, initial encounter; L03.119 Cellulitis of unspecified part of limb; F43.10 Post-traumatic stress disorder, unspecified; F41.9 Anxiety disorder, unspecified; F90.1 Attention-deficit hyperactivity disorder, predominantly hyperactive type; E87.6 Hypokalemia; F17.200 Nicotine dependence, unspecified, uncomplicated; S05.00XA Injury of conjunctiva and corneal abrasion without foreign body, unspecified eye, initial encounter; X58.XXXA Exposure to other specified factors, initial encounter; Y92.163 Bedroom in school dormitory as the place of occurrence of the external cause